=== PATIENT | female | born 1940 | race Caucasian/White ===

== ENCOUNTER 2017-07-10 19:16 | Inpatient (IN) | payer MEDICARE ==
[~2017-07-10] VITALS: Ht 152.4 cm; Wt 35.9 kg
--- NOTE | 2017-07-10 19:21 | PHYS DOC ---
Adult General Chief Complaint Chief Complaint: psych assessment [facility] HPI Patient is a 77 year old female who presents for [facility] psych evaluation. Patient denies any fevers chills nausea vomiting or abdominal pain. She is alert to me her last name is in a figure who she is. She wants to call her states he 's in [place] working currently. She is not sure how she got to [facility] emergency Department. Review of Systems Review of Systems Constitutional: Denies fever or chills [] Eyes: Denies change in visual acuity, redness, or eye pain [] HENT: Denies nasal congestion or sore throat [] Respiratory: Denies cough or shortness of breath [] Cardiovascular: No additional information not addressed in HPI [] GI: Denies abdominal pain, nausea, vomiting, bloody stools or diarrhea [] : Denies dysuria or hematuria [] Musculoskeletal: Denies back pain or joint pain [] Integument: Denies rash or skin lesions [] Neurologic: Denies headache, focal weakness or sensory changes [] Endocrine: Denies polyuria or polydipsia [] Physical Exam Physical Exam Constitutional: Well developed, well nourished, no acute distress, non-toxic appearance. [] HENT: Normocephalic, atraumatic, bilateral external ears normal, oropharynx moist, no oral exudates, nose normal. [] Eyes: PERRLA, EOMI, conjunctiva normal, no discharge. [] Neck: Normal range of motion, no tenderness, supple, no stridor. [] Cardiovascular:Heart rate regular rhythm, no murmur [] Lungs & Thorax: Bilateral breath sounds clear to auscultation [] Abdomen: Bowel sounds normal, soft, no tenderness, no masses, no pulsatile masses. [] Skin: Warm, dry, no erythema, no rash. [] Back: No tenderness, no CVA tenderness. [] Extremities: No tenderness, no cyanosis, no clubbing, ROM intact, no edema. [] Neurologic: Alert and interactive, normal motor function, normal sensory function, no focal deficits noted. [] Psychologic: Scared EKG EKG EKG shows sinus rhythm with rate of [address] elevations or concerning T waves, normal axis, QTC 460 ms, as interpreted by me. Radiology/Procedures Radiology/Procedures [] Impressions: [facility] psych clearance Course & Med Decision Making Course & Med Decision Making Pertinent Labs and Imaging studies reviewed. (See chart for details) I do not appreciate any acute abnormalities going on with the patient and the patient is not cleared for [facility] psych admission. Dragon Disclaimer Dragon Disclaimer This chart was dictated in whole or in part using Voice Recognition software in a busy, high-work load, and often noisy Emergency Department environment. It may contain unintended and wholly unrecognized errors or omissions. Departure Departure: Impression: Primary Impression: Depression Disposition: 02 XFER SHT-TRM HOSP Condition: STABLE Problem Qualifiers Primary Impression: Depression Depression Type: unspecified Qualified Codes: F32.9 - Major depressive disorder, single episode, unspecified YOCASTA ACUNA MD Jul 10, 2017 19:21
[2017-07-10 19:52] LABS: BASO % 0 % (0-3); EOS # 0.4 x10^3/uL (0.0-0.7); EOS % 4 % (0-3); HEMATOCRIT 44.2 % (36.0-47.0); HEMOGLOBIN 15.5 g/dL (12.0-15.5); LYMPH # 1.8 x10^3/uL (1.0-4.8); LYMPH % 21 % (24-48); MEAN CORPUSCULAR HEMOGLOBIN 34 pg (25-35); MEAN CORPUSCULAR HGB CONC 35 g/dL (31-37); MEAN CORPUSCULAR VOLUME 96 fL (79-100); MONO # 0.9 x10^3/uL (0.0-1.1); MONO % 10 % (0-9); NEUT # 5.8 x10^3uL (1.8-7.7); NEUT % 65 % (31-73); PLATELET COUNT 725 x10^3/uL (140-400); RED BLOOD COUNT 4.63 x10^6/uL (3.50-5.40); WHITE BLOOD COUNT 8.9 x10^3/uL (4.0-11.0)
[2017-07-10 20:07] LABS: ALBUMIN 3.6 g/dL (3.4-5.0); ALBUMIN/GLOBULIN RATIO 0.9 (1.0-1.7); CALCIUM 9.3 mg/dL (8.5-10.1); CREATININE 0.6 mg/dL (0.6-1.0); GFR 96.7; MAGNESIUM 1.9 mg/dL (1.8-2.4); POTASSIUM 4.3 mmol/L (3.5-5.1); TOTAL BILIRUBIN 0.2 mg/dL (0.2-1.0); TOTAL PROTEIN 7.8 g/dL (6.4-8.2)
[2017-07-10 20:56] LABS: CLARITY,URINE CLEAR; COLOR,URINE YELLOW; GLUCOSE,URINE NEG (NEG)
[2017-07-10 20:57] LABS: BACTERIA,URINE FEW /HPF (0-FEW); BILIRUBIN,URINE NEG (NEG); NITRITE,URINE NEG (NEG); SQUAMOUS EPITHELIAL CELL,UR MOD /LPF; UROBILINOGEN,URINE 0.2 mg/dL (0.2 mg/dL)
[2017-07-10] MEDS ORDERED: MELA3TAB2 PO (21:58)
[2017-07-10] MEDS ORDERED: POLY17PO5 PO (21:58)
[2017-07-10] MEDS ORDERED: GABA-585 PO (21:58)
[2017-07-10] MEDS ORDERED: ONDA4TAB11 PO (21:58)
[2017-07-10] MEDS ORDERED: TRAM-48 PO (21:58)
[2017-07-10] MEDS ORDERED: MEMA10TA PO (21:58)
[2017-07-10] MEDS ORDERED: TRAZ50TA15 PO (21:58)
[2017-07-10] MEDS ORDERED: DOCU-109 PO (21:58)
[2017-07-10] MEDS ORDERED: ASPI-612 PO (21:58)
[2017-07-10] MEDS ORDERED: AMLO5TAB2 PO (21:58)
[2017-07-10] MEDS ORDERED: MAGN400O7 PO (21:58)
[2017-07-10] MEDS ORDERED: ACET325T9 PO (21:58)
[2017-07-10] MEDS ORDERED: BUSP5TAB PO (21:58)
[2017-07-10] MEDS ORDERED: BISA10SU2 RC (21:58)
[2017-07-10] MEDS ORDERED: GUAI12003 PO (21:58)
--- NOTE | 2017-07-10 22:34 | EKG ---
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
[2017-07-10] MEDS ORDERED: MAG HYDROX/AL HYDROX/SIMETH 30 ML ORAL.SUSP PO PRN (23:15)
[2017-07-10] MEDS ORDERED: METHYL SALICYLATE/MENTHOL TOPICAL OINTMENT 29GM TUBE. TP PRN (23:15)
[2017-07-10] MEDS ORDERED: ACETAMINOPHEN 325 MG TABLET PO PRN (23:15)
[2017-07-10] MEDS ORDERED: MAGNESIUM HYDROXIDE 2,400 MG/30 ML ORAL.SUSP. PO PRN (23:15)
[2017-07-10 23:31] VITALS: BP 143/85
[2017-07-11 06:40] VITALS: BP 154/88
[2017-07-11] MEDS ORDERED: MAGNESIUM HYDROXIDE 2,400 MG/30 ML ORAL.SUSP. PO PRN (07:30)
[2017-07-11] MEDS ORDERED: BISACODYL 10 MG SUPP.RECT RC PRN (07:30)
[2017-07-11] MEDS: ASPIRIN ENTERIC COATED 81 MG TABLET.DR. PO SCH (08:53)
[2017-07-11] MEDS: DOCUSATE SODIUM 100 MG CAPSULE PO SCH (08:53)
[2017-07-11] MEDS: POLYETHYLENE GLYCOL 3350 17 GM PACKET. PO SCH (08:54)
[2017-07-11] MEDS: MEMANTINE 10 MG TABLET. PO SCH ×2 (08:54→20:31)
[2017-07-11] MEDS: traZODone 50 MG TABLET. PO SCH ×3 (08:54→20:31)
[2017-07-11] MEDS: ACETAMINOPHEN 325 MG TABLET PO SCH ×3 (08:54→20:32)
[2017-07-11] MEDS: amLODIPine BESYLATE 5 MG TABLET PO SCH (08:54)
[2017-07-11] MEDS: busPIRone 5 MG TABLET. PO SCH ×2 (08:54→20:31)
[2017-07-11 14:16] LABS: THYROID STIM HORMONE (TSH) 0.783 uIU/mL (0.358-3.740)
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
[2017-07-11 16:27] VITALS: BP 147/89
[2017-07-11 19:12] LABS: T3 TOTAL 96 ng/dL (71-180); THYROXINE 8.6 ug/dL (4.5-12.0)
[2017-07-11 19:39] VITALS: BP 154/94
[2017-07-11] MEDS: GABAPENTIN 100 MG CAPSULE. PO SCH (20:33)
[2017-07-11] MEDS: MELATONIN 3 MG TABLET PO SCH (20:33)
--- NOTE | 2017-07-11 21:09 | PDOC ---
Exam Mu Demential Exam: Mu Note: Please also refer to the separate dictated note~for this date of service dictated separately.~Patient seen individually. Discussed the patient with Nursing staff reviewed the chart.~Reviewed interim history and current functioning. Reviewed vital signs,~Labs/ Radiology~and current medications noted below. Continue current treatment with the changes noted in the dictated addendum note Assessment: Vital Signs: Vital Signs Date Time Temp Pulse Resp B/P (MAP) Pulse Ox O2 Delivery O2 Flow Rate FiO2 07/11/17 19:39 97.9 104 20 154/94 (114) 96 Room Air I&O Intake and Output 07/12/17 07:00 Intake Total 780 ml Balance 780 ml Intake Oral 780 ml Current Medications: Meds: Current Medications Acetaminophen (Tylenol) 650 mg PRN Q6HRS PRN PO PAIN / TEMP; Start 07/10/17 at 23:15 Multi-Ingredient Ointment (Analgesic [place]) 1 madan PRN QID PRN TP MUSCLE PAIN; Start 07/10/17 at 23:15 Al Hydroxide/Mg Hydroxide (Mylanta Plus Xs) 15 ml PRN AFTMEALHC PRN PO DYSPEPSIA; Start 07/10/17 at 23:15 Magnesium Hydroxide (Milk Of Magnesia) 2,400 mg PRN QHS PRN PO CONSTIPATION; Start 07/10/17 at 23:15 Buspirone HCl (Buspar) 5 mg BID PO Last administered on 07/11/17 20:31; Start 07/11/17 at 09:00 Memantine (Namenda) 10 mg BID PO Last administered on 07/11/17 20:31; Start 07/11/17 at 09:00 Trazodone HCl (Desyrel) 25 mg TID PO Last administered on 07/11/17 20:31; Start 07/11/17 at 09:00 Melatonin 3 mg QHS PO Last administered on 07/11/17 20:33; Start 07/11/17 at 21:00 Acetaminophen (Tylenol) 650 mg TID PO Last administered on 07/11/17 20:32; Start 07/11/17 at 09:00 Amlodipine Besylate (Norvasc) 5 mg DAILY PO Last administered on 07/11/17 08: 54; Start 07/11/17 at 09:00 Aspirin (Aspirin Enteric Coated) 81 mg DAILY PO Last administered on 07/11/17 08:53; Start 07/11/17 at 09:00 Bisacodyl (Dulcolax Supp) 10 mg PRN DAILY PRN RC CONSTIPATION; Start 07/11/17 at 07:30 Docusate Sodium (Colace) 100 mg DAILY PO Last administered on 07/11/17 08:53; Start 07/11/17 at 09:00 Gabapentin (Neurontin) 100 mg HS PO Last administered on 07/11/17 20:33; Start 07/11/17 at 21:00 Magnesium Hydroxide (Milk Of Magnesia) 1,200 mg PRN DAILY PRN PO CONSTIPATION; Start 07/11/17 at 07:30 Polyethylene Glycol (miraLAX) 17 gm DAILY PO Last administered on 07/11/17 08: 54; Start 07/11/17 at 09:00 Tramadol HCl (Ultram) 50 mg PRN Q6HRS PRN PO PAIN; Start 07/11/17 at 07:30 Guaifenesin (Mucinex Er) 1,200 mg DAILY PO Last administered on 07/11/17 08:54 ; Start 07/11/17 at 09:00 Active Scripts Active Reported Tylenol (Acetaminophen) 325 Mg Tablet 650 Mg PO TID Trazodone Hcl 50 Mg Tablet 25 Mg PO TID Ultram (Tramadol HCl) 50 Mg Tablet 50 Mg PO PRN Q6HRS PRN Ondansetron Hcl 4 Mg Tablet 4 Mg PO Mucinex (Guaifenesin) 1,200 Mg Tbmp.12hr 1,200 Mg PO DAILY Miralax (Polyethylene Glycol 3350) 17 Gm Powd.pack 17 Gm PO DAILY Milk Of Magnesia (Magnesium Hydroxide) 400 Mg/5 Ml Oral.susp 1,200 Mg PO PRN DAILY PRN Namenda (Memantine Hcl) 10 Mg Tablet 10 Mg PO BID Melatonin 3 Mg Tablet 3 Mg PO QHS Gabapentin 100 Mg Capsule 100 Mg PO HS Colace (Docusate Sodium) 100 Mg Capsule 1 Cap PO DAILY Buspirone Hcl 5 Mg Tablet 5 Mg PO BID Bisacodyl 10 Mg Supp.rect 10 Mg RC PRN DAILY PRN Aspirin Ec (Aspirin) 81 Mg Tablet.dr 81 Mg PO DAILY PRN Amlodipine Besylate 5 Mg Tablet 5 Mg PO DAILY Diagnosis: Problems: (1) Depression KANWAL ZULETA MD Jul 11, 2017 21:09
[2017-07-12 03:21] LABS: HEMOGLOBIN A1C 5.8 % (4.8-5.6)
[2017-07-12 06:09] VITALS: BP 135/80
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
[2017-07-12] MEDS: MEMANTINE 10 MG TABLET. PO SCH ×2 (09:39→20:03)
[2017-07-12] MEDS: traZODone 50 MG TABLET. PO SCH ×3 (09:41→20:03)
[2017-07-12] MEDS: busPIRone 5 MG TABLET. PO SCH ×2 (09:41→20:03)
[2017-07-12] MEDS: POLYETHYLENE GLYCOL 3350 17 GM PACKET. PO SCH (09:42)
[2017-07-12] MEDS: DOCUSATE SODIUM 100 MG CAPSULE PO SCH (09:42)
[2017-07-12] MEDS: ACETAMINOPHEN 325 MG TABLET PO SCH ×3 (09:42→20:03)
[2017-07-12] MEDS: amLODIPine BESYLATE 5 MG TABLET PO SCH (09:42)
[2017-07-12] MEDS: ASPIRIN ENTERIC COATED 81 MG TABLET.DR. PO SCH (09:42)
[2017-07-12 15:53] VITALS: BP 110/75
[2017-07-12] MEDS: MELATONIN 3 MG TABLET PO SCH (20:02)
[2017-07-12] MEDS: GABAPENTIN 100 MG CAPSULE. PO SCH (20:03)
--- NOTE | 2017-07-12 21:16 | PDOC ---
Exam Mu Demential Exam: Mu Note: Please also refer to the separate dictated note~for this date of service dictated separately.~Patient seen individually. Discussed the patient with Nursing staff reviewed the chart.~Reviewed interim history and current functioning. Reviewed vital signs,~Labs/ Radiology~and current medications noted below. Continue current treatment with the changes noted in the dictated addendum note Assessment: Vital Signs: Vital Signs Date Time Temp Pulse Resp B/P (MAP) Pulse Ox O2 Delivery O2 Flow Rate FiO2 07/12/17 15:53 98.8 79 16 110/75 (87) 97 07/11/17 19:39 Room Air I&O Intake and Output 07/13/17 07:00 Intake Total 480 ml Balance 480 ml Intake Oral 480 ml Current Medications: Meds: Current Medications Acetaminophen (Tylenol) 650 mg PRN Q6HRS PRN PO PAIN / TEMP; Start 07/10/17 at 23:15 Multi-Ingredient Ointment (Analgesic [place]) 1 madan PRN QID PRN TP MUSCLE PAIN; Start 07/10/17 at 23:15 Al Hydroxide/Mg Hydroxide (Mylanta Plus Xs) 15 ml PRN AFTMEALHC PRN PO DYSPEPSIA; Start 07/10/17 at 23:15 Magnesium Hydroxide (Milk Of Magnesia) 2,400 mg PRN QHS PRN PO CONSTIPATION; Start 07/10/17 at 23:15 Buspirone HCl (Buspar) 5 mg BID PO Last administered on 07/12/17 20:03; Start 07/11/17 at 09:00 Memantine (Namenda) 10 mg BID PO Last administered on 07/12/17 20:03; Start 07/11/17 at 09:00 Trazodone HCl (Desyrel) 25 mg TID PO Last administered on 07/12/17 20:03; Start 07/11/17 at 09:00 Melatonin 3 mg QHS PO Last administered on 07/12/17 20:02; Start 07/11/17 at 21:00 Acetaminophen (Tylenol) 650 mg TID PO Last administered on 07/12/17 20:03; Start 07/11/17 at 09:00 Amlodipine Besylate (Norvasc) 5 mg DAILY PO Last administered on 07/12/17 09: 42; Start 07/11/17 at 09:00 Aspirin (Aspirin Enteric Coated) 81 mg DAILY PO Last administered on 07/12/17 09:42; Start 07/11/17 at 09:00 Bisacodyl (Dulcolax Supp) 10 mg PRN DAILY PRN RC CONSTIPATION; Start 07/11/17 at 07:30 Docusate Sodium (Colace) 100 mg DAILY PO Last administered on 07/12/17 09:42; Start 07/11/17 at 09:00 Gabapentin (Neurontin) 100 mg HS PO Last administered on 07/12/17 20:03; Start 07/11/17 at 21:00 Magnesium Hydroxide (Milk Of Magnesia) 1,200 mg PRN DAILY PRN PO CONSTIPATION; Start 07/11/17 at 07:30 Polyethylene Glycol (miraLAX) 17 gm DAILY PO Last administered on 07/12/17 09: 42; Start 07/11/17 at 09:00 Tramadol HCl (Ultram) 50 mg PRN Q6HRS PRN PO PAIN; Start 07/11/17 at 07:30 Guaifenesin (Mucinex Er) 1,200 mg DAILY PO Last administered on 07/12/17 09:40 ; Start 07/11/17 at 09:00 Sertraline HCl (Zoloft) 25 mg DAILY PO ; Start 07/13/17 at 09:00; Stop 07/15/17 at 09:00 Sertraline HCl (Zoloft) 50 mg DAILY PO ; Start 07/15/17 at 09:00 Active Scripts Active Reported Tylenol (Acetaminophen) 325 Mg Tablet 650 Mg PO TID Trazodone Hcl 50 Mg Tablet 25 Mg PO TID Ultram (Tramadol HCl) 50 Mg Tablet 50 Mg PO PRN Q6HRS PRN Ondansetron Hcl 4 Mg Tablet 4 Mg PO Mucinex (Guaifenesin) 1,200 Mg Tbmp.12hr 1,200 Mg PO DAILY Miralax (Polyethylene Glycol 3350) 17 Gm Powd.pack 17 Gm PO DAILY Milk Of Magnesia (Magnesium Hydroxide) 400 Mg/5 Ml Oral.susp 1,200 Mg PO PRN DAILY PRN Namenda (Memantine Hcl) 10 Mg Tablet 10 Mg PO BID Melatonin 3 Mg Tablet 3 Mg PO QHS Gabapentin 100 Mg Capsule 100 Mg PO HS Colace (Docusate Sodium) 100 Mg Capsule 1 Cap PO DAILY Buspirone Hcl 5 Mg Tablet 5 Mg PO BID Bisacodyl 10 Mg Supp.rect 10 Mg RC PRN DAILY PRN Aspirin Ec (Aspirin) 81 Mg Tablet.dr 81 Mg PO DAILY PRN Amlodipine Besylate 5 Mg Tablet 5 Mg PO DAILY Diagnosis: Problems: (1) Depression (2) Anxiety disorder (3) Dementia in Alzheimer's disease with depression (4) Dementia in Alzheimer's disease with delusions (5) Dementia, vascular, with depression (6) Dementia, vascular, with delusions (7) Impulse control disorder KANWAL ZULETA MD Jul 12, 2017 21:15
[2017-07-13 06:08] VITALS: BP 124/76
[2017-07-13] MEDS: POLYETHYLENE GLYCOL 3350 17 GM PACKET. PO SCH (08:54)
[2017-07-13] MEDS: ACETAMINOPHEN 325 MG TABLET PO SCH ×3 (08:54→19:17)
[2017-07-13] MEDS: DOCUSATE SODIUM 100 MG CAPSULE PO SCH (08:54)
[2017-07-13] MEDS: amLODIPine BESYLATE 5 MG TABLET PO SCH (08:55)
[2017-07-13] MEDS: MEMANTINE 10 MG TABLET. PO SCH ×2 (08:55→19:16)
[2017-07-13] MEDS: busPIRone 5 MG TABLET. PO SCH ×2 (08:55→19:15)
[2017-07-13] MEDS: ASPIRIN ENTERIC COATED 81 MG TABLET.DR. PO SCH (08:56)
[2017-07-13] MEDS: traZODone 50 MG TABLET. PO SCH ×3 (08:56→19:16)
[2017-07-13] MEDS: SERTRALINE 25 MG TABLET. PO SCH (08:58)
[2017-07-13 16:16] VITALS: BP 158/82
--- NOTE | 2017-07-13 17:37 | PN ---
DATE: 07/12/2017 PSYCHIATRIC PROGRESS NOTE This is a late entry 07/12/2017, covers elements not covered in my initial note of 07/12/2017. SUBJECTIVE: The patient was seen individually evening of 07/12/2017. She slept 8 hours previous evening, yelling for help, constantly asking for her , Elia, redirects at times. She fell the previous evening, no injuries noted, slide out of her wheelchair. Things she can walk, but she cannot, status post CVA in 03/2017. REVIEW OF SYSTEMS: Ambulation impaired, in wheelchair. No CV, , pulmonary, eye, ENT system symptoms on review. MENTAL STATUS EXAM: Oriented to herself. Insight, judgment, recent and remote memory, attention, concentration, fund of knowledge poor, consistent with her diagnoses mentioned in my initial note. PLAN: Start Zoloft 25 mg a day, increase in 2 days to 50 mg a day. Maintain the rest of the psychotropics. Adjust further as clinically indicated. KANWAL ZULETA MD DR: SCOTT/giuseppe JOB#: [id number] / [id number]
[2017-07-13] MEDS: GABAPENTIN 100 MG CAPSULE. PO SCH (19:16)
[2017-07-13] MEDS: MELATONIN 3 MG TABLET PO SCH (19:16)
--- NOTE | 2017-07-13 22:59 | PDOC ---
Exam Mu Demential Exam: Mu Note: Please also refer to the separate dictated note~for this date of service dictated separately.~Patient seen individually. Discussed the patient with Nursing staff reviewed the chart.~Reviewed interim history and current functioning. Reviewed vital signs,~Labs/ Radiology~and current medications noted below. Continue current treatment with the changes noted in the dictated addendum note Assessment: Vital Signs: Vital Signs Date Time Temp Pulse Resp B/P (MAP) Pulse Ox O2 Delivery O2 Flow Rate FiO2 07/13/17 16:16 97.0 90 20 158/82 (107) 95 07/11/17 19:39 Room Air I&O Intake and Output 07/14/17 07:00 Intake Total 1320 ml Output Total 1 ml Balance 1319 ml Intake Oral 1320 ml Output Urine Total 1 ml # Bowel Movements 1 Current Medications: Meds: Current Medications Acetaminophen (Tylenol) 650 mg PRN Q6HRS PRN PO PAIN / TEMP; Start 07/10/17 at 23:15 Multi-Ingredient Ointment (Analgesic [place]) 1 madan PRN QID PRN TP MUSCLE PAIN; Start 07/10/17 at 23:15 Al Hydroxide/Mg Hydroxide (Mylanta Plus Xs) 15 ml PRN AFTMEALHC PRN PO DYSPEPSIA; Start 07/10/17 at 23:15 Magnesium Hydroxide (Milk Of Magnesia) 2,400 mg PRN QHS PRN PO CONSTIPATION; Start 07/10/17 at 23:15 Buspirone HCl (Buspar) 5 mg BID PO Last administered on 07/13/17 19:15; Start 07/11/17 at 09:00 Memantine (Namenda) 10 mg BID PO Last administered on 07/13/17 19:16; Start 07/11/17 at 09:00 Trazodone HCl (Desyrel) 25 mg TID PO Last administered on 07/13/17 19:16; Start 07/11/17 at 09:00 Melatonin 3 mg QHS PO Last administered on 07/13/17 19:16; Start 07/11/17 at 21:00 Acetaminophen (Tylenol) 650 mg TID PO Last administered on 07/13/17 19:17; Start 07/11/17 at 09:00 Amlodipine Besylate (Norvasc) 5 mg DAILY PO Last administered on 07/13/17 08: 55; Start 07/11/17 at 09:00 Aspirin (Aspirin Enteric Coated) 81 mg DAILY PO Last administered on 07/13/17 08:56; Start 07/11/17 at 09:00 Bisacodyl (Dulcolax Supp) 10 mg PRN DAILY PRN RC CONSTIPATION; Start 07/11/17 at 07:30 Docusate Sodium (Colace) 100 mg DAILY PO Last administered on 07/13/17 08:54; Start 07/11/17 at 09:00 Gabapentin (Neurontin) 100 mg HS PO Last administered on 07/13/17 19:16; Start 07/11/17 at 21:00 Magnesium Hydroxide (Milk Of Magnesia) 1,200 mg PRN DAILY PRN PO CONSTIPATION; Start 07/11/17 at 07:30 Polyethylene Glycol (miraLAX) 17 gm DAILY PO Last administered on 07/13/17 08: 54; Start 07/11/17 at 09:00 Tramadol HCl (Ultram) 50 mg PRN Q6HRS PRN PO PAIN; Start 07/11/17 at 07:30 Guaifenesin (Mucinex Er) 1,200 mg DAILY PO Last administered on 07/13/17 08:54 ; Start 07/11/17 at 09:00 Sertraline HCl (Zoloft) 25 mg DAILY PO Last administered on 07/13/17 08:58; Start 07/13/17 at 09:00; Stop 07/15/17 at 09:00 Sertraline HCl (Zoloft) 50 mg DAILY PO ; Start 07/15/17 at 09:00 Active Scripts Active Reported Tylenol (Acetaminophen) 325 Mg Tablet 650 Mg PO TID Trazodone Hcl 50 Mg Tablet 25 Mg PO TID Ultram (Tramadol HCl) 50 Mg Tablet 50 Mg PO PRN Q6HRS PRN Ondansetron Hcl 4 Mg Tablet 4 Mg PO Mucinex (Guaifenesin) 1,200 Mg Tbmp.12hr 1,200 Mg PO DAILY Miralax (Polyethylene Glycol 3350) 17 Gm Powd.pack 17 Gm PO DAILY Milk Of Magnesia (Magnesium Hydroxide) 400 Mg/5 Ml Oral.susp 2,400 Mg PO PRN DAILY PRN Namenda (Memantine Hcl) 10 Mg Tablet 10 Mg PO BID Melatonin 3 Mg Tablet 3 Mg PO QHS Gabapentin 100 Mg Capsule 100 Mg PO HS Colace (Docusate Sodium) 100 Mg Capsule 100 Mg PO DAILY Buspirone Hcl 5 Mg Tablet 5 Mg PO BID Bisacodyl 10 Mg Supp.rect 10 Mg RC PRN DAILY PRN Aspirin Ec (Aspirin) 81 Mg Tablet.dr 81 Mg PO DAILY PRN Amlodipine Besylate 5 Mg Tablet 5 Mg PO DAILY Diagnosis: Problems: (1) Depression (2) Anxiety disorder (3) Dementia in Alzheimer's disease with depression (4) Dementia in Alzheimer's disease with delusions (5) Dementia, vascular, with depression (6) Dementia, vascular, with delusions (7) Impulse control disorder KANWAL ZULETA MD Jul 13, 2017 22:59
[2017-07-14 05:57] VITALS: BP 156/75
[2017-07-14] MEDS: DOCUSATE SODIUM 100 MG CAPSULE PO SCH (08:38)
[2017-07-14] MEDS: POLYETHYLENE GLYCOL 3350 17 GM PACKET. PO SCH (08:38)
[2017-07-14] MEDS: busPIRone 5 MG TABLET. PO SCH ×2 (08:38→19:41)
[2017-07-14] MEDS: ASPIRIN ENTERIC COATED 81 MG TABLET.DR. PO SCH (08:38)
[2017-07-14] MEDS: SERTRALINE 25 MG TABLET. PO SCH (08:39)
[2017-07-14] MEDS: traZODone 50 MG TABLET. PO SCH ×3 (08:39→19:41)
[2017-07-14] MEDS: ACETAMINOPHEN 325 MG TABLET PO SCH ×3 (08:40→19:41)
[2017-07-14] MEDS: amLODIPine BESYLATE 5 MG TABLET PO SCH (08:41)
[2017-07-14] MEDS: MEMANTINE 10 MG TABLET. PO SCH ×2 (08:41→19:41)
[2017-07-14 15:51] VITALS: BP 152/82
[2017-07-14] MEDS: GABAPENTIN 100 MG CAPSULE. PO SCH (19:40)
[2017-07-14] MEDS: MELATONIN 3 MG TABLET PO SCH (19:41)
--- NOTE | 2017-07-14 20:43 | PDOC ---
Exam Mu Demential Exam: Mu Note: Please also refer to the separate dictated note~for this date of service dictated separately.~Patient seen individually. Discussed the patient with Nursing staff reviewed the chart.~Reviewed interim history and current functioning. Reviewed vital signs,~Labs/ Radiology~and current medications noted below. Continue current treatment with the changes noted in the dictated addendum note Assessment: Vital Signs: Vital Signs Date Time Temp Pulse Resp B/P (MAP) Pulse Ox O2 Delivery O2 Flow Rate FiO2 07/14/17 15:51 98.1 86 18 152/82 (105) 96 07/11/17 19:39 Room Air I&O Intake and Output 07/15/17 07:00 Intake Total 1560 ml Balance 1560 ml Intake Oral 1560 ml Current Medications: Meds: Current Medications Acetaminophen (Tylenol) 650 mg PRN Q6HRS PRN PO PAIN / TEMP; Start 07/10/17 at 23:15 Multi-Ingredient Ointment (Analgesic [place]) 1 madan PRN QID PRN TP MUSCLE PAIN; Start 07/10/17 at 23:15 Al Hydroxide/Mg Hydroxide (Mylanta Plus Xs) 15 ml PRN AFTMEALHC PRN PO DYSPEPSIA; Start 07/10/17 at 23:15 Magnesium Hydroxide (Milk Of Magnesia) 2,400 mg PRN QHS PRN PO CONSTIPATION; Start 07/10/17 at 23:15 Buspirone HCl (Buspar) 5 mg BID PO Last administered on 07/14/17 19:41; Start 07/11/17 at 09:00 Memantine (Namenda) 10 mg BID PO Last administered on 07/14/17 19:41; Start 07/11/17 at 09:00 Trazodone HCl (Desyrel) 25 mg TID PO Last administered on 07/14/17 19:41; Start 07/11/17 at 09:00 Melatonin 3 mg QHS PO Last administered on 07/14/17 19:41; Start 07/11/17 at 21:00 Acetaminophen (Tylenol) 650 mg TID PO Last administered on 07/14/17 19:41; Start 07/11/17 at 09:00 Amlodipine Besylate (Norvasc) 5 mg DAILY PO Last administered on 07/14/17 08: 41; Start 07/11/17 at 09:00 Aspirin (Aspirin Enteric Coated) 81 mg DAILY PO Last administered on 07/14/17 08:38; Start 07/11/17 at 09:00 Bisacodyl (Dulcolax Supp) 10 mg PRN DAILY PRN RC CONSTIPATION; Start 07/11/17 at 07:30 Docusate Sodium (Colace) 100 mg DAILY PO Last administered on 07/14/17 08:38; Start 07/11/17 at 09:00 Gabapentin (Neurontin) 100 mg HS PO Last administered on 07/14/17 19:40; Start 07/11/17 at 21:00 Magnesium Hydroxide (Milk Of Magnesia) 1,200 mg PRN DAILY PRN PO CONSTIPATION; Start 07/11/17 at 07:30 Polyethylene Glycol (miraLAX) 17 gm DAILY PO Last administered on 07/14/17 08: 38; Start 07/11/17 at 09:00 Tramadol HCl (Ultram) 50 mg PRN Q6HRS PRN PO PAIN; Start 07/11/17 at 07:30 Guaifenesin (Mucinex Er) 1,200 mg DAILY PO Last administered on 07/14/17 08:39 ; Start 07/11/17 at 09:00 Sertraline HCl (Zoloft) 25 mg DAILY PO Last administered on 07/14/17 08:39; Start 07/13/17 at 09:00; Stop 07/15/17 at 09:00 Sertraline HCl (Zoloft) 50 mg DAILY PO ; Start 07/15/17 at 09:00 Active Scripts Active Reported Tylenol (Acetaminophen) 325 Mg Tablet 650 Mg PO TID Trazodone Hcl 50 Mg Tablet 25 Mg PO TID Ultram (Tramadol HCl) 50 Mg Tablet 50 Mg PO PRN Q6HRS PRN Ondansetron Hcl 4 Mg Tablet 4 Mg PO Mucinex (Guaifenesin) 1,200 Mg Tbmp.12hr 1,200 Mg PO DAILY Miralax (Polyethylene Glycol 3350) 17 Gm Powd.pack 17 Gm PO DAILY Milk Of Magnesia (Magnesium Hydroxide) 400 Mg/5 Ml Oral.susp 2,400 Mg PO PRN DAILY PRN Namenda (Memantine Hcl) 10 Mg Tablet 10 Mg PO BID Melatonin 3 Mg Tablet 3 Mg PO QHS Gabapentin 100 Mg Capsule 100 Mg PO HS Colace (Docusate Sodium) 100 Mg Capsule 100 Mg PO DAILY Buspirone Hcl 5 Mg Tablet 5 Mg PO BID Bisacodyl 10 Mg Supp.rect 10 Mg RC PRN DAILY PRN Aspirin Ec (Aspirin) 81 Mg Tablet.dr 81 Mg PO DAILY PRN Amlodipine Besylate 5 Mg Tablet 5 Mg PO DAILY Diagnosis: Problems: (1) Depression (2) Anxiety disorder (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
--- NOTE | 2017-07-14 22:37 | PN ---
DATE: 07/13/2017 PSYCHIATRIC PROGRESS NOTE This is a late entry for 07/13/2017, covers elements not covered in my initial note of 07/13/2017. SUBJECTIVE: I met with the patient the evening of 07/13/2017. Overall, the patient has been pleasantly confused, has no memory or recall, calling out for her , somewhat paranoid, has been taking medications. REVIEW OF SYSTEMS: Ambulation impaired, in a wheelchair. No CV, , pulmonary, eye, ENT system symptoms on review. MENTAL STATUS EXAM: Oriented to herself. Insight, judgment, recent and remote memory, attention, concentration, fund of knowledge poor, consistent with her diagnosis mentioned in my initial note. PLAN: Continue current psychotropics, Zoloft has been increased to 50 mg a day. Maintain BuSpar, melatonin, Namenda, and trazodone, which is scheduled. As her mood stabilizes, we may reduce the trazodone 25 mg t.i.d. Reviewed drug interactions. Risk/benefit ratio favors no further change. MAN Dariel ZULETA MD DR: SCOTT/giuseppe JOB#: [id number] / [id number]
[2017-07-14] MEDS: traMADol 50 MG TABLET PO PRN (22:48)
[2017-07-15 06:26] VITALS: BP 154/84
[2017-07-15] MEDS: busPIRone 5 MG TABLET. PO SCH ×2 (08:34→19:23)
[2017-07-15] MEDS: amLODIPine BESYLATE 5 MG TABLET PO SCH (08:34)
[2017-07-15] MEDS: DOCUSATE SODIUM 100 MG CAPSULE PO SCH (08:34)
[2017-07-15] MEDS: POLYETHYLENE GLYCOL 3350 17 GM PACKET. PO SCH (08:34)
[2017-07-15] MEDS: ACETAMINOPHEN 325 MG TABLET PO SCH ×3 (08:34→19:24)
[2017-07-15] MEDS: ASPIRIN ENTERIC COATED 81 MG TABLET.DR. PO SCH (08:34)
[2017-07-15] MEDS: traZODone 50 MG TABLET. PO SCH ×3 (08:35→19:23)
[2017-07-15] MEDS: SERTRALINE 25 MG TABLET. PO SCH ×3 (08:35→08:39)
[2017-07-15] MEDS: SERTRALINE 50 MG TABLET. PO SCH (08:38)
[2017-07-15] MEDS: MEMANTINE 10 MG TABLET. PO SCH ×2 (08:39→19:23)
[2017-07-15 16:12] VITALS: BP 138/86
[2017-07-15] MEDS: MELATONIN 3 MG TABLET PO SCH (19:23)
[2017-07-15] MEDS: GABAPENTIN 100 MG CAPSULE. PO SCH (19:24)
--- NOTE | 2017-07-15 20:30 | PDOC ---
Exam Mu Demential Exam: Mu Note: Please also refer to the separate dictated note~for this date of service dictated separately.~Patient seen individually. Discussed the patient with Nursing staff reviewed the chart.~Reviewed interim history and current functioning. Reviewed vital signs,~Labs/ Radiology~and current medications noted below. Continue current treatment with the changes noted in the dictated addendum note Assessment: Vital Signs: Vital Signs Date Time Temp Pulse Resp B/P (MAP) Pulse Ox O2 Delivery O2 Flow Rate FiO2 07/15/17 16:12 97.8 86 18 138/86 (103) 95 Room Air I&O Intake and Output 07/16/17 07:00 Intake Total 1320 ml Balance 1320 ml Intake Oral 1320 ml # Bowel Movements 2 Current Medications: Meds: Current Medications Acetaminophen (Tylenol) 650 mg PRN Q6HRS PRN PO PAIN / TEMP; Start 07/10/17 at 23:15 Multi-Ingredient Ointment (Analgesic [place]) 1 madan PRN QID PRN TP MUSCLE PAIN; Start 07/10/17 at 23:15 Al Hydroxide/Mg Hydroxide (Mylanta Plus Xs) 15 ml PRN AFTMEALHC PRN PO DYSPEPSIA; Start 07/10/17 at 23:15 Magnesium Hydroxide (Milk Of Magnesia) 2,400 mg PRN QHS PRN PO CONSTIPATION; Start 07/10/17 at 23:15 Buspirone HCl (Buspar) 5 mg BID PO Last administered on 07/15/17 19:23; Start 07/11/17 at 09:00 Memantine (Namenda) 10 mg BID PO Last administered on 07/15/17 19:23; Start 07/11/17 at 09:00 Trazodone HCl (Desyrel) 25 mg TID PO Last administered on 07/15/17 19:23; Start 07/11/17 at 09:00 Melatonin 3 mg QHS PO Last administered on 07/15/17 19:23; Start 07/11/17 at 21:00 Acetaminophen (Tylenol) 650 mg TID PO Last administered on 07/15/17 19:24; Start 07/11/17 at 09:00 Amlodipine Besylate (Norvasc) 5 mg DAILY PO Last administered on 07/15/17 08: 34; Start 07/11/17 at 09:00 Aspirin (Aspirin Enteric Coated) 81 mg DAILY PO Last administered on 07/15/17 08:34; Start 07/11/17 at 09:00 Bisacodyl (Dulcolax Supp) 10 mg PRN DAILY PRN RC CONSTIPATION; Start 07/11/17 at 07:30 Docusate Sodium (Colace) 100 mg DAILY PO Last administered on 07/15/17 08:34; Start 07/11/17 at 09:00 Gabapentin (Neurontin) 100 mg HS PO Last administered on 07/15/17 19:24; Start 07/11/17 at 21:00 Magnesium Hydroxide (Milk Of Magnesia) 1,200 mg PRN DAILY PRN PO CONSTIPATION; Start 07/11/17 at 07:30 Polyethylene Glycol (miraLAX) 17 gm DAILY PO Last administered on 07/15/17 08: 34; Start 07/11/17 at 09:00 Tramadol HCl (Ultram) 50 mg PRN Q6HRS PRN PO PAIN Last administered on 22:48; Start 07/11/17 at 07:30 Guaifenesin (Mucinex Er) 1,200 mg DAILY PO Last administered on 07/15/17 08:34 ; Start 07/11/17 at 09:00 Sertraline HCl (Zoloft) 25 mg DAILY PO Last administered on 07/14/17 08:39; Start 07/13/17 at 09:00; Stop 07/15/17 at 09:00; Status DC Sertraline HCl (Zoloft) 50 mg DAILY PO Last administered on 07/15/17 08:38; Start 07/15/17 at 09:00 Active Scripts Active Reported Tylenol (Acetaminophen) 325 Mg Tablet 650 Mg PO TID Trazodone Hcl 50 Mg Tablet 25 Mg PO TID Ultram (Tramadol HCl) 50 Mg Tablet 50 Mg PO PRN Q6HRS PRN Ondansetron Hcl 4 Mg Tablet 4 Mg PO Mucinex (Guaifenesin) 1,200 Mg Tbmp.12hr 1,200 Mg PO DAILY Miralax (Polyethylene Glycol 3350) 17 Gm Powd.pack 17 Gm PO DAILY Milk Of Magnesia (Magnesium Hydroxide) 400 Mg/5 Ml Oral.susp 2,400 Mg PO PRN DAILY PRN Namenda (Memantine Hcl) 10 Mg Tablet 10 Mg PO BID Melatonin 3 Mg Tablet 3 Mg PO QHS Gabapentin 100 Mg Capsule 100 Mg PO HS Colace (Docusate Sodium) 100 Mg Capsule 100 Mg PO DAILY Buspirone Hcl 5 Mg Tablet 5 Mg PO BID Bisacodyl 10 Mg Supp.rect 10 Mg RC PRN DAILY PRN Aspirin Ec (Aspirin) 81 Mg Tablet.dr 81 Mg PO DAILY PRN Amlodipine Besylate 5 Mg Tablet 5 Mg PO DAILY Diagnosis: Problems: (1) Anxiety disorder (2) 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
--- NOTE | 2017-07-15 23:29 | PN ---
DATE: 07/14/2017 PSYCHIATRIC PROGRESS NOTE This late entry 07/14/2017 covers elements, not covered in my initial note of 07/14/2017. SUBJECTIVE: I met with the patient evening of 07/14/2017, discussed with nursing staff. Per nursing report, the patient remains pleasantly confused with significant short term memory deficits, calling out for , somewhat suspicious, yelling out at times for ____ her . REVIEW OF SYSTEMS: Ambulation impaired, in a wheelchair. No CV, , pulmonary, eye, ENT system symptoms on review. Reliability poor. MENTAL STATUS EXAM: Oriented to herself. Insight, judgment, recent and remote memory, attention, concentration, fund of knowledge poor, consistent with her diagnosis mentioned in my initial note. PLAN: Continue current psychotropics mentioned in my initial note. Reviewed drug interactions. Risk/benefit ratio favors no further change. MAN Dariel ZULETA MD DR: SCOTT/giuseppe JOB#: [id number] / [id number]
[2017-07-16 07:12] VITALS: BP 134/87
[2017-07-16] MEDS: amLODIPine BESYLATE 5 MG TABLET PO SCH (08:07)
[2017-07-16] MEDS: DOCUSATE SODIUM 100 MG CAPSULE PO SCH (08:07)
[2017-07-16] MEDS: busPIRone 5 MG TABLET. PO SCH ×2 (08:07→19:17)
[2017-07-16] MEDS: MEMANTINE 10 MG TABLET. PO SCH ×2 (08:07→19:16)
[2017-07-16] MEDS: ASPIRIN ENTERIC COATED 81 MG TABLET.DR. PO SCH (08:07)
[2017-07-16] MEDS: POLYETHYLENE GLYCOL 3350 17 GM PACKET. PO SCH (08:08)
[2017-07-16] MEDS: SERTRALINE 50 MG TABLET. PO SCH (08:08)
[2017-07-16] MEDS: ACETAMINOPHEN 325 MG TABLET PO SCH ×3 (08:08→19:17)
[2017-07-16] MEDS: traZODone 50 MG TABLET. PO SCH ×3 (08:09→19:16)
[2017-07-16 16:02] VITALS: BP 129/78
[2017-07-16] MEDS: GABAPENTIN 100 MG CAPSULE. PO SCH (19:16)
[2017-07-16] MEDS: MELATONIN 3 MG TABLET PO SCH (19:17)
--- NOTE | 2017-07-16 20:49 | PDOC ---
Exam Mu Demential Exam: Mu Note: Please also refer to the separate dictated note~for this date of service dictated separately.~Patient seen individually. Discussed the patient with Nursing staff reviewed the chart.~Reviewed interim history and current functioning. Reviewed vital signs,~Labs/ Radiology~and current medications noted below. Continue current treatment with the changes noted in the dictated addendum note Assessment: Vital Signs: Vital Signs Date Time Temp Pulse Resp B/P (MAP) Pulse Ox O2 Delivery O2 Flow Rate FiO2 07/16/17 16:02 97.8 75 20 129/78 (95) 94 07/15/17 16:12 Room Air I&O Intake and Output 07/17/17 07:00 Intake Total 840 ml Balance 840 ml Intake Oral 840 ml # Bowel Movements 1 Current Medications: Meds: Current Medications Acetaminophen (Tylenol) 650 mg PRN Q6HRS PRN PO PAIN / TEMP; Start 07/10/17 at 23:15 Multi-Ingredient Ointment (Analgesic [place]) 1 madan PRN QID PRN TP MUSCLE PAIN; Start 07/10/17 at 23:15 Al Hydroxide/Mg Hydroxide (Mylanta Plus Xs) 15 ml PRN AFTMEALHC PRN PO DYSPEPSIA; Start 07/10/17 at 23:15 Magnesium Hydroxide (Milk Of Magnesia) 2,400 mg PRN QHS PRN PO CONSTIPATION; Start 07/10/17 at 23:15 Buspirone HCl (Buspar) 5 mg BID PO Last administered on 07/16/17 19:17; Start 07/11/17 at 09:00 Memantine (Namenda) 10 mg BID PO Last administered on 07/16/17 19:16; Start 07/11/17 at 09:00 Trazodone HCl (Desyrel) 25 mg TID PO Last administered on 07/16/17 19:16; Start 07/11/17 at 09:00 Melatonin 3 mg QHS PO Last administered on 07/16/17 19:17; Start 07/11/17 at 21:00 Acetaminophen (Tylenol) 650 mg TID PO Last administered on 07/16/17 19:17; Start 07/11/17 at 09:00 Amlodipine Besylate (Norvasc) 5 mg DAILY PO Last administered on 07/16/17 08: 07; Start 07/11/17 at 09:00 Aspirin (Aspirin Enteric Coated) 81 mg DAILY PO Last administered on 08:07; Start 07/11/17 at 09:00 Bisacodyl (Dulcolax Supp) 10 mg PRN DAILY PRN RC CONSTIPATION; Start 07/11/17 at 07:30 Docusate Sodium (Colace) 100 mg DAILY PO Last administered on 07/16/17 08:07 ; Start 07/11/17 at 09:00 Gabapentin (Neurontin) 100 mg HS PO Last administered on 07/16/17 19:16; Start 07/11/17 at 21:00 Magnesium Hydroxide (Milk Of Magnesia) 1,200 mg PRN DAILY PRN PO CONSTIPATION; Start 07/11/17 at 07:30 Polyethylene Glycol (miraLAX) 17 gm DAILY PO Last administered on 07/16/17 08 :08; Start 07/11/17 at 09:00 Tramadol HCl (Ultram) 50 mg PRN Q6HRS PRN PO PAIN Last administered on 22:48; Start 07/11/17 at 07:30 Guaifenesin (Mucinex Er) 1,200 mg DAILY PO Last administered on 07/16/17 08: 09; Start 07/11/17 at 09:00 Sertraline HCl (Zoloft) 25 mg DAILY PO Last administered on 07/14/17 08:39; Start 07/13/17 at 09:00; Stop 07/15/17 at 09:00; Status DC Sertraline HCl (Zoloft) 50 mg DAILY PO Last administered on 07/16/17 08:08; Start 07/15/17 at 09:00 Active Scripts Active Reported Tylenol (Acetaminophen) 325 Mg Tablet 650 Mg PO TID Trazodone Hcl 50 Mg Tablet 25 Mg PO TID Ultram (Tramadol HCl) 50 Mg Tablet 50 Mg PO PRN Q6HRS PRN Ondansetron Hcl 4 Mg Tablet 4 Mg PO Mucinex (Guaifenesin) 1,200 Mg Tbmp.12hr 1,200 Mg PO DAILY Miralax (Polyethylene Glycol 3350) 17 Gm Powd.pack 17 Gm PO DAILY Milk Of Magnesia (Magnesium Hydroxide) 400 Mg/5 Ml Oral.susp 2,400 Mg PO PRN DAILY PRN Namenda (Memantine Hcl) 10 Mg Tablet 10 Mg PO BID Melatonin 3 Mg Tablet 3 Mg PO QHS Gabapentin 100 Mg Capsule 100 Mg PO HS Colace (Docusate Sodium) 100 Mg Capsule 100 Mg PO DAILY Buspirone Hcl 5 Mg Tablet 5 Mg PO BID Bisacodyl 10 Mg Supp.rect 10 Mg RC PRN DAILY PRN Aspirin Ec (Aspirin) 81 Mg Tablet.dr 81 Mg PO DAILY PRN Amlodipine Besylate 5 Mg Tablet 5 Mg PO DAILY Diagnosis: Problems: (1) Depression (2) Anxiety disorder (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
--- NOTE | 2017-07-17 03:00 | PN ---
DATE: 07/15/2017 PSYCHIATRIC PROGRESS NOTE This late entry 07/15/2017, covers elements not covered in my initial note of 07/15/2017. I met with the patient in the afternoon of 07/15/2017. The patient slept 8-1/2 hours the previous evening, spending more time out in the day room suspicious looking for her , Elia. Still gets tearful, labile at times. REVIEW OF SYSTEMS: Ambulation impaired, in a wheelchair. No CV, , pulmonary, eye, ENT system symptoms on review. Reliability poor. MENTAL STATUS EXAM: Oriented to herself. Insight, judgment, recent and remote memory, attention, concentration, fund of knowledge poor, consistent with her diagnosis mentioned in my initial note. PLAN: Continue current psychotropics mentioned in my initial note. Zoloft was increased to 50 mg a day. She is on BuSpar b.i.d., melatonin, Namenda, scheduled trazodone at 25 mg 3 times a day, this could be sedating her and we will reduce it to 12.5 mg 3 times a day and consider increasing BuSpar if anxiety symptoms resurface. Reviewed drug interactions, risk/benefit ratio favors no further change. KANWAL ZULETA MD DR: SCOTT/giuseppe JOB#: [id number] / [id number]
[2017-07-17 05:48] VITALS: BP 151/86
[2017-07-17] MEDS: ASPIRIN ENTERIC COATED 81 MG TABLET.DR. PO SCH (08:08)
[2017-07-17] MEDS: ACETAMINOPHEN 325 MG TABLET PO SCH ×3 (08:09→19:44)
[2017-07-17] MEDS: MEMANTINE 10 MG TABLET. PO SCH ×2 (08:10→19:44)
[2017-07-17] MEDS: busPIRone 5 MG TABLET. PO SCH ×2 (08:10→19:43)
[2017-07-17] MEDS: amLODIPine BESYLATE 5 MG TABLET PO SCH (08:11)
[2017-07-17] MEDS: SERTRALINE 50 MG TABLET. PO SCH (08:12)
[2017-07-17] MEDS: traZODone 50 MG TABLET. PO SCH ×3 (08:12→19:44)
[2017-07-17] MEDS: DOCUSATE SODIUM 100 MG CAPSULE PO SCH (08:12)
[2017-07-17] MEDS: POLYETHYLENE GLYCOL 3350 17 GM PACKET. PO SCH (08:14)
[2017-07-17 16:41] VITALS: BP 149/77
[2017-07-17] MEDS: MELATONIN 3 MG TABLET PO SCH (19:43)
[2017-07-17] MEDS: GABAPENTIN 100 MG CAPSULE. PO SCH (19:44)
--- NOTE | 2017-07-17 20:32 | PDOC ---
Exam Mu Demential Exam: Mu Note: Please also refer to the separate dictated note~for this date of service dictated separately.~Patient seen individually. Discussed the patient with Nursing staff reviewed the chart.~Reviewed interim history and current functioning. Reviewed vital signs,~Labs/ Radiology~and current medications noted below. Continue current treatment with the changes noted in the dictated addendum note Assessment: Vital Signs: Vital Signs Date Time Temp Pulse Resp B/P (MAP) Pulse Ox O2 Delivery O2 Flow Rate FiO2 07/17/17 16:41 98.1 78 18 149/77 (101) 95 07/17/17 05:48 Room Air I&O Intake and Output 07/18/17 07:00 Intake Total 720 ml Balance 720 ml Intake Oral 720 ml Current Medications: Meds: Current Medications Acetaminophen (Tylenol) 650 mg PRN Q6HRS PRN PO PAIN / TEMP; Start 07/10/17 at 23:15 Multi-Ingredient Ointment (Analgesic [place]) 1 madan PRN QID PRN TP MUSCLE PAIN; Start 07/10/17 at 23:15 Al Hydroxide/Mg Hydroxide (Mylanta Plus Xs) 15 ml PRN AFTMEALHC PRN PO DYSPEPSIA; Start 07/10/17 at 23:15 Magnesium Hydroxide (Milk Of Magnesia) 2,400 mg PRN QHS PRN PO CONSTIPATION; Start 07/10/17 at 23:15 Buspirone HCl (Buspar) 5 mg BID PO Last administered on 07/17/17 19:43; Start 07/11/17 at 09:00 Memantine (Namenda) 10 mg BID PO Last administered on 07/17/17 19:44; Start 07/11/17 at 09:00 Trazodone HCl (Desyrel) 25 mg TID PO Last administered on 07/17/17 14:09; Start 07/11/17 at 09:00; Stop 07/17/17 at 18:51; Status DC Melatonin 3 mg QHS PO Last administered on 07/17/17 19:43; Start 07/11/17 at 21:00 Acetaminophen (Tylenol) 650 mg TID PO Last administered on 07/17/17 19:44; Start 07/11/17 at 09:00 Amlodipine Besylate (Norvasc) 5 mg DAILY PO Last administered on 07/17/17 08: 11; Start 07/11/17 at 09:00 Aspirin (Aspirin Enteric Coated) 81 mg DAILY PO Last administered on 08:08; Start 07/11/17 at 09:00 Bisacodyl (Dulcolax Supp) 10 mg PRN DAILY PRN RC CONSTIPATION; Start 07/11/17 at 07:30 Docusate Sodium (Colace) 100 mg DAILY PO Last administered on 07/17/17 08:12 ; Start 07/11/17 at 09:00 Gabapentin (Neurontin) 100 mg HS PO Last administered on 07/17/17 19:44; Start 07/11/17 at 21:00 Magnesium Hydroxide (Milk Of Magnesia) 1,200 mg PRN DAILY PRN PO CONSTIPATION; Start 07/11/17 at 07:30 Polyethylene Glycol (miraLAX) 17 gm DAILY PO Last administered on 07/17/17 08 :14; Start 07/11/17 at 09:00 Tramadol HCl (Ultram) 50 mg PRN Q6HRS PRN PO PAIN Last administered on 22:48; Start 07/11/17 at 07:30 Guaifenesin (Mucinex Er) 1,200 mg DAILY PO Last administered on 07/17/17 08: 11; Start 07/11/17 at 09:00 Sertraline HCl (Zoloft) 25 mg DAILY PO Last administered on 07/14/17 08:39; Start 07/13/17 at 09:00; Stop 07/15/17 at 09:00; Status DC Sertraline HCl (Zoloft) 50 mg DAILY PO Last administered on 07/17/17 08:12; Start 07/15/17 at 09:00 Trazodone HCl (Desyrel) 12.5 mg TID PO Last administered on 07/17/17 19:44; Start 07/17/17 at 21:00 Active Scripts Active Reported Tylenol (Acetaminophen) 325 Mg Tablet 650 Mg PO TID Trazodone Hcl 50 Mg Tablet 25 Mg PO TID Ultram (Tramadol HCl) 50 Mg Tablet 50 Mg PO PRN Q6HRS PRN Ondansetron Hcl 4 Mg Tablet 4 Mg PO Mucinex (Guaifenesin) 1,200 Mg Tbmp.12hr 1,200 Mg PO DAILY Miralax (Polyethylene Glycol 3350) 17 Gm Powd.pack 17 Gm PO DAILY Milk Of Magnesia (Magnesium Hydroxide) 400 Mg/5 Ml Oral.susp 2,400 Mg PO PRN DAILY PRN Namenda (Memantine Hcl) 10 Mg Tablet 10 Mg PO BID Melatonin 3 Mg Tablet 3 Mg PO QHS Gabapentin 100 Mg Capsule 100 Mg PO HS Colace (Docusate Sodium) 100 Mg Capsule 100 Mg PO DAILY Buspirone Hcl 5 Mg Tablet 5 Mg PO BID Bisacodyl 10 Mg Supp.rect 10 Mg RC PRN DAILY PRN Aspirin Ec (Aspirin) 81 Mg Tablet.dr 81 Mg PO DAILY PRN Amlodipine Besylate 5 Mg Tablet 5 Mg PO DAILY Diagnosis: Problems: (1) Depression (2) Anxiety disorder (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
--- NOTE | 2017-07-18 02:58 | PN ---
DATE: 07/16/2017 PSYCHIATRIC PROGRESS NOTE This is a late entry for 07/16/2017, covers the elements not covered in my initial note 07/16/2017. SUBJECTIVE: I met with the patient individually evening of 07/16/2017. I returned a call from the patient's , had a long conversation with her about the patient's history. She has been treated outpatient by her primary care physician, Dr. Ena Duffy in [place], [place]. thinks she has been on Seroquel in the past, but unsure of the other psychotropics Dr. Duffy treated the patient on and we will get those records on 07/17/2017. The patient remains confused, scared, wanting to go home, refusing medications at times, repeatedly asking "help help" unsure of what help she wants. 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 REVIEW OF SYSTEMS: Ambulation impaired, in a wheelchair. No CV, , pulmonary, eye and ENT system symptoms on review. Reliability poor. MENTAL STATUS EXAM: Oriented to herself. Insight, judgment, recent and remote memory, attention, concentration, fund of knowledge poor, consistent with her diagnosis mentioned in my initial note. IMPRESSION: Unchanged. PLAN: Continue current psychotropics, trazodone was reduced from 25 mg 3 times a day to 12.5 mg 3 times a day. Maintain Namenda, melatonin, BuSpar, Zoloft. The patient slept 8 hours the previous evening. Review drug interactions, risk/benefit ratio favors no further change for now. KANWAL ZULETA MD DR: SCOTT/giuseppe JOB#: [id number] / [id number]
[2017-07-18 06:07] VITALS: BP 137/94
[2017-07-18] MEDS: MEMANTINE 10 MG TABLET. PO SCH ×2 (08:26→19:44)
[2017-07-18] MEDS: traZODone 50 MG TABLET. PO SCH ×3 (08:26→19:44)
[2017-07-18] MEDS: SERTRALINE 50 MG TABLET. PO SCH (08:26)
[2017-07-18] MEDS: busPIRone 5 MG TABLET. PO SCH ×2 (08:26→19:43)
[2017-07-18] MEDS: ASPIRIN ENTERIC COATED 81 MG TABLET.DR. PO SCH (08:26)
[2017-07-18] MEDS: amLODIPine BESYLATE 5 MG TABLET PO SCH (08:27)
[2017-07-18] MEDS: ACETAMINOPHEN 325 MG TABLET PO SCH ×3 (08:27→19:44)
[2017-07-18] MEDS: DOCUSATE SODIUM 100 MG CAPSULE PO SCH (08:28)
[2017-07-18] MEDS: POLYETHYLENE GLYCOL 3350 17 GM PACKET. PO SCH (08:28)
[2017-07-18] MEDS: DIVALPROEX 125 MG CAP.SPRINK PO SCH (14:17)
[2017-07-18 16:30] VITALS: BP 149/82
[2017-07-18] MEDS: GABAPENTIN 100 MG CAPSULE. PO SCH (19:43)
[2017-07-18] MEDS: MELATONIN 3 MG TABLET PO SCH (19:44)
--- NOTE | 2017-07-18 20:39 | PDOC ---
Exam Mu Demential Exam: Mu Note: Please also refer to the separate dictated note~for this date of service dictated separately.~Patient seen individually. Discussed the patient with Nursing staff reviewed the chart.~Reviewed interim history and current functioning. Reviewed vital signs,~Labs/ Radiology~and current medications noted below. Continue current treatment with the changes noted in the dictated addendum note Assessment: Vital Signs: Vital Signs Date Time Temp Pulse Resp B/P (MAP) Pulse Ox O2 Delivery O2 Flow Rate FiO2 07/18/17 16:30 97.5 72 16 149/82 (104) 94 07/17/17 05:48 Room Air I&O Intake and Output 07/19/17 07:00 Intake Total 800 ml Balance 800 ml Intake Oral 800 ml # Bowel Movements 2 Current Medications: Meds: Current Medications Acetaminophen (Tylenol) 650 mg PRN Q6HRS PRN PO PAIN / TEMP; Start 07/10/17 at 23:15 Multi-Ingredient Ointment (Analgesic [place]) 1 madan PRN QID PRN TP MUSCLE PAIN; Start 07/10/17 at 23:15 Al Hydroxide/Mg Hydroxide (Mylanta Plus Xs) 15 ml PRN AFTMEALHC PRN PO DYSPEPSIA; Start 07/10/17 at 23:15 Magnesium Hydroxide (Milk Of Magnesia) 2,400 mg PRN QHS PRN PO CONSTIPATION; Start 07/10/17 at 23:15 Buspirone HCl (Buspar) 5 mg BID PO Last administered on 07/18/17 19:43; Start 07/11/17 at 09:00 Memantine (Namenda) 10 mg BID PO Last administered on 07/18/17 19:44; Start 07/11/17 at 09:00 Trazodone HCl (Desyrel) 25 mg TID PO Last administered on 07/17/17 14:09; Start 07/11/17 at 09:00; Stop 07/17/17 at 18:51; Status DC Melatonin 3 mg QHS PO Last administered on 07/18/17 19:44; Start 07/11/17 at 21:00 Acetaminophen (Tylenol) 650 mg TID PO Last administered on 07/18/17 19:44; Start 07/11/17 at 09:00 Amlodipine Besylate (Norvasc) 5 mg DAILY PO Last administered on 07/18/17 08: 27; Start 07/11/17 at 09:00 Aspirin (Aspirin Enteric Coated) 81 mg DAILY PO Last administered on 08:26; Start 07/11/17 at 09:00 Bisacodyl (Dulcolax Supp) 10 mg PRN DAILY PRN RC CONSTIPATION; Start 07/11/17 at 07:30 Docusate Sodium (Colace) 100 mg DAILY PO Last administered on 07/18/17 08:28 ; Start 07/11/17 at 09:00 Gabapentin (Neurontin) 100 mg HS PO Last administered on 07/18/17 19:43; Start 07/11/17 at 21:00 Magnesium Hydroxide (Milk Of Magnesia) 1,200 mg PRN DAILY PRN PO CONSTIPATION; Start 07/11/17 at 07:30 Polyethylene Glycol (miraLAX) 17 gm DAILY PO Last administered on 07/18/17 08 :28; Start 07/11/17 at 09:00 Tramadol HCl (Ultram) 50 mg PRN Q6HRS PRN PO PAIN Last administered on 22:48; Start 07/11/17 at 07:30 Guaifenesin (Mucinex Er) 1,200 mg DAILY PO Last administered on 07/18/17 08: 26; Start 07/11/17 at 09:00 Sertraline HCl (Zoloft) 25 mg DAILY PO Last administered on 07/14/17 08:39; Start 07/13/17 at 09:00; Stop 07/15/17 at 09:00; Status DC Sertraline HCl (Zoloft) 50 mg DAILY PO Last administered on 07/18/17 08:26; Start 07/15/17 at 09:00 Trazodone HCl (Desyrel) 12.5 mg TID PO Last administered on 07/18/17 19:44; Start 07/17/17 at 21:00 Divalproex Sodium (Depakote Sprinkles) 125 mg BID92 PO Last administered on 14:17; Start 07/18/17 at 14:00 Olanzapine (ZyPREXA ZYDIS) 1.25 mg PRN Q2HR PRN PO ANXIETY / AGITATION; Start 07/18/17 at 11:15 Active Scripts Active Reported Tylenol (Acetaminophen) 325 Mg Tablet 650 Mg PO TID Trazodone Hcl 50 Mg Tablet 25 Mg PO TID Ultram (Tramadol HCl) 50 Mg Tablet 50 Mg PO PRN Q6HRS PRN Ondansetron Hcl 4 Mg Tablet 4 Mg PO Mucinex (Guaifenesin) 1,200 Mg Tbmp.12hr 1,200 Mg PO DAILY Miralax (Polyethylene Glycol 3350) 17 Gm Powd.pack 17 Gm PO DAILY Milk Of Magnesia (Magnesium Hydroxide) 400 Mg/5 Ml Oral.susp 2,400 Mg PO PRN DAILY PRN Namenda (Memantine Hcl) 10 Mg Tablet 10 Mg PO BID Melatonin 3 Mg Tablet 3 Mg PO QHS Gabapentin 100 Mg Capsule 100 Mg PO HS Colace (Docusate Sodium) 100 Mg Capsule 100 Mg PO DAILY Buspirone Hcl 5 Mg Tablet 5 Mg PO BID Bisacodyl 10 Mg Supp.rect 10 Mg RC PRN DAILY PRN Aspirin Ec (Aspirin) 81 Mg Tablet.dr 81 Mg PO DAILY PRN Amlodipine Besylate 5 Mg Tablet 5 Mg PO DAILY Diagnosis: Problems: (1) Anxiety disorder (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
[2017-07-19 06:19] VITALS: BP 145/64
[2017-07-19] MEDS: ASPIRIN ENTERIC COATED 81 MG TABLET.DR. PO SCH (08:33)
[2017-07-19] MEDS: DOCUSATE SODIUM 100 MG CAPSULE PO SCH (08:33)
[2017-07-19] MEDS: DIVALPROEX 125 MG CAP.SPRINK PO SCH ×2 (08:33→14:19)
[2017-07-19] MEDS: traZODone 50 MG TABLET. PO SCH ×3 (08:33→19:28)
[2017-07-19] MEDS: MEMANTINE 10 MG TABLET. PO SCH ×2 (08:33→19:28)
[2017-07-19] MEDS: SERTRALINE 50 MG TABLET. PO SCH (08:33)
[2017-07-19] MEDS: POLYETHYLENE GLYCOL 3350 17 GM PACKET. PO SCH ×2 (08:34→09:00)
[2017-07-19] MEDS: amLODIPine BESYLATE 5 MG TABLET PO SCH (08:34)
[2017-07-19] MEDS: busPIRone 5 MG TABLET. PO SCH ×2 (08:34→19:28)
[2017-07-19] MEDS: ACETAMINOPHEN 325 MG TABLET PO SCH ×3 (08:34→19:28)
[2017-07-19 16:38] VITALS: BP 128/61
[2017-07-19] MEDS: GABAPENTIN 100 MG CAPSULE. PO SCH (19:28)
[2017-07-19] MEDS: MELATONIN 3 MG TABLET PO SCH (19:28)
--- NOTE | 2017-07-19 20:46 | PDOC ---
Exam Mu Demential Exam: Mu Note: Please also refer to the separate dictated note~for this date of service dictated separately.~Patient seen individually. Discussed the patient with Nursing staff reviewed the chart.~Reviewed interim history and current functioning. Reviewed vital signs,~Labs/ Radiology~and current medications noted below. Continue current treatment with the changes noted in the dictated addendum note Assessment: Vital Signs: Vital Signs Date Time Temp Pulse Resp B/P (MAP) Pulse Ox O2 Delivery O2 Flow Rate FiO2 07/19/17 16:38 98.8 78 20 128/61 (83) 95 07/17/17 05:48 Room Air I&O Intake and Output 07/20/17 07:00 Intake Total 720 ml Balance 720 ml Intake Oral 720 ml Current Medications: Meds: Current Medications Acetaminophen (Tylenol) 650 mg PRN Q6HRS PRN PO PAIN / TEMP; Start 07/10/17 at 23:15 Multi-Ingredient Ointment (Analgesic [place]) 1 madan PRN QID PRN TP MUSCLE PAIN; Start 07/10/17 at 23:15 Al Hydroxide/Mg Hydroxide (Mylanta Plus Xs) 15 ml PRN AFTMEALHC PRN PO DYSPEPSIA; Start 07/10/17 at 23:15 Magnesium Hydroxide (Milk Of Magnesia) 2,400 mg PRN QHS PRN PO CONSTIPATION; Start 07/10/17 at 23:15 Buspirone HCl (Buspar) 5 mg BID PO Last administered on 07/19/17 19:28; Start 07/11/17 at 09:00 Memantine (Namenda) 10 mg BID PO Last administered on 07/19/17 19:28; Start 07/11/17 at 09:00 Trazodone HCl (Desyrel) 25 mg TID PO Last administered on 07/17/17 14:09; Start 07/11/17 at 09:00; Stop 07/17/17 at 18:51; Status DC Melatonin 3 mg QHS PO Last administered on 07/19/17 19:28; Start 07/11/17 at 21:00 Acetaminophen (Tylenol) 650 mg TID PO Last administered on 07/19/17 19:28; Start 07/11/17 at 09:00 Amlodipine Besylate (Norvasc) 5 mg DAILY PO Last administered on 07/19/17 08: 34; Start 07/11/17 at 09:00 Aspirin (Aspirin Enteric Coated) 81 mg DAILY PO Last administered on 08:33; Start 07/11/17 at 09:00 Bisacodyl (Dulcolax Supp) 10 mg PRN DAILY PRN RC CONSTIPATION; Start 07/11/17 at 07:30 Docusate Sodium (Colace) 100 mg DAILY PO Last administered on 07/19/17 08:33 ; Start 07/11/17 at 09:00 Gabapentin (Neurontin) 100 mg HS PO Last administered on 07/19/17 19:28; Start 07/11/17 at 21:00 Magnesium Hydroxide (Milk Of Magnesia) 1,200 mg PRN DAILY PRN PO CONSTIPATION; Start 07/11/17 at 07:30 Polyethylene Glycol (miraLAX) 17 gm DAILY PO Last administered on 07/18/17 08 :28; Start 07/11/17 at 09:00 Tramadol HCl (Ultram) 50 mg PRN Q6HRS PRN PO PAIN Last administered on 22:48; Start 07/11/17 at 07:30 Guaifenesin (Mucinex Er) 1,200 mg DAILY PO Last administered on 07/19/17 08: 33; Start 07/11/17 at 09:00 Sertraline HCl (Zoloft) 25 mg DAILY PO Last administered on 07/14/17 08:39; Start 07/13/17 at 09:00; Stop 07/15/17 at 09:00; Status DC Sertraline HCl (Zoloft) 50 mg DAILY PO Last administered on 07/19/17 08:33; Start 07/15/17 at 09:00 Trazodone HCl (Desyrel) 12.5 mg TID PO Last administered on 07/19/17 19:28; Start 07/17/17 at 21:00 Divalproex Sodium (Depakote Sprinkles) 125 mg BID92 PO Last administered on 14:19; Start 07/18/17 at 14:00 Olanzapine (ZyPREXA ZYDIS) 1.25 mg PRN Q2HR PRN PO ANXIETY / AGITATION Last administered on 07/19/17 16:45; Start 07/18/17 at 11:15 Active Scripts Active Reported Tylenol (Acetaminophen) 325 Mg Tablet 650 Mg PO TID Trazodone Hcl 50 Mg Tablet 25 Mg PO TID Ultram (Tramadol HCl) 50 Mg Tablet 50 Mg PO PRN Q6HRS PRN Ondansetron Hcl 4 Mg Tablet 4 Mg PO Mucinex (Guaifenesin) 1,200 Mg Tbmp.12hr 1,200 Mg PO DAILY Miralax (Polyethylene Glycol 3350) 17 Gm Powd.pack 17 Gm PO DAILY Milk Of Magnesia (Magnesium Hydroxide) 400 Mg/5 Ml Oral.susp 2,400 Mg PO PRN DAILY PRN Namenda (Memantine Hcl) 10 Mg Tablet 10 Mg PO BID Melatonin 3 Mg Tablet 3 Mg PO QHS Gabapentin 100 Mg Capsule 100 Mg PO HS Colace (Docusate Sodium) 100 Mg Capsule 100 Mg PO DAILY Buspirone Hcl 5 Mg Tablet 5 Mg PO BID Bisacodyl 10 Mg Supp.rect 10 Mg RC PRN DAILY PRN Aspirin Ec (Aspirin) 81 Mg Tablet.dr 81 Mg PO DAILY PRN Amlodipine Besylate 5 Mg Tablet 5 Mg PO DAILY Diagnosis: Problems: (1) Depression (2) Anxiety disorder (3) Dementia in Alzheimer's disease with depression (4) Dementia in Alzheimer's disease with delusions (5) Dementia, vascular, with depression (6) Dementia, vascular, with delusions (7) Impulse control disorder KANWAL ZULETA MD Jul 19, 2017 20:46
--- NOTE | 2017-07-20 03:54 | PN ---
DATE: 07/18/2017 This late entry 07/18/2017 covers elements not covered in my initial note of 07/18/2017. Met with the patient evening of 07/18/2017. She was staffed at a treatment team meeting with the entire team morning of 07/18/2017. Her , Elia, attended the treatment team meeting. The patient slept 6 hours previous evening. Appetite 50-75%. I have reviewed about [address] Duffy, her primary care physician, but prior psychotropics are not mentioned there. She remains anxious, restless, confused. REVIEW OF SYSTEMS: Ambulation impaired, in a wheelchair. No CV, , pulmonary, eye, ENT system symptoms on review. Reliability poor. MENTAL STATUS EXAM: Oriented to herself. Insight, judgment, recent and remote memory, attention, concentration, fund of knowledge poor, consistent with her diagnosis mentioned in my initial note. LABORATORY DATA: Reviewed. PLAN: Continue current psychotropics. Start Depakote Sprinkles 125 mg twice a day. Check CBC, CMP, valproic acid level in 3 days. We will add Zyprexa p.r.n. and continue BuSpar, melatonin, Namenda, and trazodone scheduled and Zoloft. We will make further adjustments as clinically indicated. Reviewed drug interactions. Risk/benefit ratio favors no further change. MAN Dariel ZULETA MD DR: SCOTT/giuseppe JOB#: [id number] / [id number]
[2017-07-20 06:42] VITALS: BP 136/77
[2017-07-20] MEDS: busPIRone 5 MG TABLET. PO SCH ×2 (08:09→20:23)
[2017-07-20] MEDS: MEMANTINE 10 MG TABLET. PO SCH ×2 (08:09→20:23)
[2017-07-20] MEDS: amLODIPine BESYLATE 5 MG TABLET PO SCH (08:09)
[2017-07-20] MEDS: traZODone 50 MG TABLET. PO SCH ×3 (08:09→20:24)
[2017-07-20] MEDS: DOCUSATE SODIUM 100 MG CAPSULE PO SCH (08:09)
[2017-07-20] MEDS: ASPIRIN ENTERIC COATED 81 MG TABLET.DR. PO SCH (08:09)
[2017-07-20] MEDS: ACETAMINOPHEN 325 MG TABLET PO SCH ×3 (08:09→20:23)
[2017-07-20] MEDS: CHOLECALCIFEROL (VITAMIN D3) 50,000 UNIT CAPSULE PO SCH (11:00)
[2017-07-20] MEDS: POLYETHYLENE GLYCOL 3350 17 GM PACKET. PO SCH (11:19)
[2017-07-20] MEDS: DIVALPROEX 125 MG CAP.SPRINK PO SCH ×2 (11:19→14:18)
[2017-07-20] MEDS: SERTRALINE 50 MG TABLET. PO SCH (11:20)
[2017-07-20 16:13] VITALS: BP 138/65
[2017-07-20] MEDS: GABAPENTIN 100 MG CAPSULE. PO SCH (20:23)
[2017-07-20] MEDS: MELATONIN 3 MG TABLET PO SCH (20:23)
--- NOTE | 2017-07-20 21:50 | PDOC ---
Exam Mu Demential Exam: Mu Note: Please also refer to the separate dictated note~for this date of service dictated separately.~Patient seen individually. Discussed the patient with Nursing staff reviewed the chart.~Reviewed interim history and current functioning. Reviewed vital signs,~Labs/ Radiology~and current medications noted below. Continue current treatment with the changes noted in the dictated addendum note Assessment: Vital Signs: Vital Signs Date Time Temp Pulse Resp B/P (MAP) Pulse Ox O2 Delivery O2 Flow Rate FiO2 07/20/17 16:13 97.5 81 20 138/65 (89) 95 Room Air I&O Intake and Output 07/21/17 07:00 Intake Total 1080 ml Balance 1080 ml Intake Oral 1080 ml Current Medications: Meds: Current Medications Acetaminophen (Tylenol) 650 mg PRN Q6HRS PRN PO PAIN / TEMP; Start 07/10/17 at 23:15 Multi-Ingredient Ointment (Analgesic [place]) 1 madan PRN QID PRN TP MUSCLE PAIN; Start 07/10/17 at 23:15 Al Hydroxide/Mg Hydroxide (Mylanta Plus Xs) 15 ml PRN AFTMEALHC PRN PO DYSPEPSIA; Start 07/10/17 at 23:15 Magnesium Hydroxide (Milk Of Magnesia) 2,400 mg PRN QHS PRN PO CONSTIPATION; Start 07/10/17 at 23:15 Buspirone HCl (Buspar) 5 mg BID PO Last administered on 07/20/17 08:09; Start 07/11/17 at 09:00; Stop 07/20/17 at 18:53; Status DC Memantine (Namenda) 10 mg BID PO Last administered on 07/20/17 20:23; Start 07/11/17 at 09:00 Trazodone HCl (Desyrel) 25 mg TID PO Last administered on 07/17/17 14:09; Start 07/11/17 at 09:00; Stop 07/17/17 at 18:51; Status DC Melatonin 3 mg QHS PO Last administered on 07/20/17 20:23; Start 07/11/17 at 21:00 Acetaminophen (Tylenol) 650 mg TID PO Last administered on 07/20/17 20:23; Start 07/11/17 at 09:00 Amlodipine Besylate (Norvasc) 5 mg DAILY PO Last administered on 07/20/17 08: 09; Start 07/11/17 at 09:00 Aspirin (Aspirin Enteric Coated) 81 mg DAILY PO Last administered on 08:09; Start 07/11/17 at 09:00 Bisacodyl (Dulcolax Supp) 10 mg PRN DAILY PRN RC CONSTIPATION; Start 07/11/17 at 07:30 Docusate Sodium (Colace) 100 mg DAILY PO Last administered on 07/20/17 08:09 ; Start 07/11/17 at 09:00 Gabapentin (Neurontin) 100 mg HS PO Last administered on 07/20/17 20:23; Start 07/11/17 at 21:00 Magnesium Hydroxide (Milk Of Magnesia) 1,200 mg PRN DAILY PRN PO CONSTIPATION; Start 07/11/17 at 07:30 Polyethylene Glycol (miraLAX) 17 gm DAILY PO Last administered on 07/20/17 11 :19; Start 07/11/17 at 09:00 Tramadol HCl (Ultram) 50 mg PRN Q6HRS PRN PO PAIN Last administered on 22:48; Start 07/11/17 at 07:30 Guaifenesin (Mucinex Er) 1,200 mg DAILY PO Last administered on 07/20/17 11: 19; Start 07/11/17 at 09:00 Sertraline HCl (Zoloft) 25 mg DAILY PO Last administered on 07/14/17 08:39; Start 07/13/17 at 09:00; Stop 07/15/17 at 09:00; Status DC Sertraline HCl (Zoloft) 50 mg DAILY PO Last administered on 07/20/17 11:20; Start 07/15/17 at 09:00 Trazodone HCl (Desyrel) 12.5 mg TID PO Last administered on 07/20/17 20:24; Start 07/17/17 at 21:00 Divalproex Sodium (Depakote Sprinkles) 125 mg BID92 PO Last administered on 14:18; Start 07/18/17 at 14:00 Olanzapine (ZyPREXA ZYDIS) 1.25 mg PRN Q2HR PRN PO ANXIETY / AGITATION Last administered on 07/20/17 11:19; Start 07/18/17 at 11:15 Vitamin D (Vitamin D3) 50,000 unit WEEKLY PO Last administered on 07/20/17 11 :00; Start 07/20/17 at 11:00 Buspirone HCl (Buspar) 5 mg QID PO Last administered on 07/20/17 20:23; Start 07/20/17 at 21:00 Active Scripts Active Reported Tylenol (Acetaminophen) 325 Mg Tablet 650 Mg PO TID Trazodone Hcl 50 Mg Tablet 25 Mg PO TID Ultram (Tramadol HCl) 50 Mg Tablet 50 Mg PO PRN Q6HRS PRN Ondansetron Hcl 4 Mg Tablet 4 Mg PO Mucinex (Guaifenesin) 1,200 Mg Tbmp.12hr 1,200 Mg PO DAILY Miralax (Polyethylene Glycol 3350) 17 Gm Powd.pack 17 Gm PO DAILY Milk Of Magnesia (Magnesium Hydroxide) 400 Mg/5 Ml Oral.susp 2,400 Mg PO PRN DAILY PRN Namenda (Memantine Hcl) 10 Mg Tablet 10 Mg PO BID Melatonin 3 Mg Tablet 3 Mg PO QHS Gabapentin 100 Mg Capsule 100 Mg PO HS Colace (Docusate Sodium) 100 Mg Capsule 100 Mg PO DAILY Buspirone Hcl 5 Mg Tablet 5 Mg PO BID Bisacodyl 10 Mg Supp.rect 10 Mg RC PRN DAILY PRN Aspirin Ec (Aspirin) 81 Mg Tablet.dr 81 Mg PO DAILY PRN Amlodipine Besylate 5 Mg Tablet 5 Mg PO DAILY Diagnosis: Problems: (1) Depression (2) Anxiety disorder (3) Dementia in Alzheimer's disease with depression (4) Dementia in Alzheimer's disease with delusions (5) Dementia, vascular, with depression (6) Dementia, vascular, with delusions (7) Impulse control disorder KANWAL ZULETA MD Jul 20, 2017 21:50
--- NOTE | 2017-07-21 01:11 | PN ---
DATE: 07/19/2017 This late entry 07/19/2017 covers elements not covered in my initial note of 07/19/2017. SUBJECTIVE: I met with the patient in the evening of 07/19/2017. The patient slept 6-3/4 hours previous evening, was extremely anxious in the morning, needy, attention , helpless, with nursing report later in the day she was better and again in the evening more anxious, repeatedly calling out help, help, looking for her , Elia. REVIEW OF SYSTEMS: Ambulation impaired, in a wheelchair. No CV, , pulmonary, eye, ENT system symptoms on review. Reliability poor. MENTAL STATUS EXAM: Oriented to herself. Insight, judgment, recent and remote memory, attention, concentration, fund of knowledge poor, consistent with her diagnosis mentioned in my initial note. PLAN: Continue current psychotropics. Check labs level on the Depakote in 2 days. Trazodone was reduced, maintain Namenda, BuSpar, melatonin and Zoloft. May consider adding Seroquel depending on her progress. Reviewed drug interactions, risk/benefit ratio favors no further change. MAN Dariel ZULETA MD DR: SCOTT/giuseppe JOB#: [id number] / [id number]
[2017-07-21 06:15] VITALS: BP 166/68
[2017-07-21 08:24] LABS: BASO # 0.1 x10^3/uL (0.0-0.2); BASO % 1 % (0-3); EOS # 0.4 x10^3/uL (0.0-0.7); EOS % 5 % (0-3); HEMATOCRIT 41.4 % (36.0-47.0); HEMOGLOBIN 14.4 g/dL (12.0-15.5); LYMPH # 1.7 x10^3/uL (1.0-4.8); LYMPH % 17 % (24-48); MEAN CORPUSCULAR HEMOGLOBIN 33 pg (25-35); MEAN CORPUSCULAR HGB CONC 35 g/dL (31-37); MEAN CORPUSCULAR VOLUME 95 fL (79-100); MONO # 0.9 x10^3/uL (0.0-1.1); MONO % 10 % (0-9); NEUT # 6.6 x10^3uL (1.8-7.7); NEUT % 68 % (31-73); PLATELET COUNT 694 x10^3/uL (140-400); RED BLOOD COUNT 4.34 x10^6/uL (3.50-5.40); RED CELL DISTRIBUTION WIDTH 16.6 % (11.5-14.5); WHITE BLOOD COUNT 9.7 x10^3/uL (4.0-11.0)
[2017-07-21 08:32] LABS: ALBUMIN 3.3 g/dL (3.4-5.0); ALBUMIN/GLOBULIN RATIO 0.9 (1.0-1.7); ALK PHOS 117 U/L (46-116); ALT (SGPT) 19 U/L (14-59); ANION GAP 7 (6-14); AST (SGOT) 15 U/L (15-37); BLOOD UREA NITROGEN 11 mg/dL (7-20); BUN/CREATININE RATIO 18 (6-20); CALCIUM 9.2 mg/dL (8.5-10.1); CARBON DIOXIDE 28 mmol/L (21-32); CHLORIDE 102 mmol/L (98-107); CREATININE 0.6 mg/dL (0.6-1.0); GFR 96.7; GLUCOSE 94 mg/dL (70-99); SODIUM 137 mmol/L (136-145); TOTAL BILIRUBIN 0.4 mg/dL (0.2-1.0); TOTAL PROTEIN 6.8 g/dL (6.4-8.2)
[2017-07-21] MEDS: ACETAMINOPHEN 325 MG TABLET PO SCH ×3 (08:40→19:23)
[2017-07-21] MEDS: POLYETHYLENE GLYCOL 3350 17 GM PACKET. PO SCH (08:40)
[2017-07-21] MEDS: amLODIPine BESYLATE 5 MG TABLET PO SCH (08:42)
[2017-07-21] MEDS: ASPIRIN ENTERIC COATED 81 MG TABLET.DR. PO SCH (08:42)
[2017-07-21] MEDS: traZODone 50 MG TABLET. PO SCH ×3 (08:43→19:23)
[2017-07-21] MEDS: MEMANTINE 10 MG TABLET. PO SCH ×2 (08:43→19:23)
[2017-07-21] MEDS: SERTRALINE 50 MG TABLET. PO SCH (08:43)
[2017-07-21] MEDS: DOCUSATE SODIUM 100 MG CAPSULE PO SCH (08:43)
[2017-07-21] MEDS: busPIRone 5 MG TABLET. PO SCH ×4 (08:43→19:23)
[2017-07-21] MEDS: DIVALPROEX 125 MG CAP.SPRINK PO SCH ×2 (08:43→13:37)
[2017-07-21 08:49] LABS: VAL ACID 20 mcg/mL (50-100)
--- NOTE | 2017-07-21 09:55 | PN ---
DATE: 07/20/2017 PSYCHIATRIC PROGRESS NOTE SUBJECTIVE: This is a late entry 07/20/2017, covers elements not covered in my initial note of 07/20/2017. Met with the patient in the evening of 07/20/2017. The patient remains quite anxious, restless, obsessive, repeatedly calling out, "help, help, help." REVIEW OF SYSTEMS: Ambulation impaired, in a wheelchair. No CV, , pulmonary, eye, ENT system symptoms on review. Reliability poor. MENTAL STATUS EXAM: Oriented to herself. Insight, judgment, recent and remote memory, attention, concentration, fund of knowledge poor, consistent with her diagnosis mentioned in my initial note. PLAN: Increase BuSpar from 5 mg b.i.d. to 5 mg 4 times a day. Continue Depakote 125 mg b.i.d. Check CBC, CMP, valproic acid level in the morning of 07/21/2017. Maintain the rest of her psychotropics, adjust post-labs on 07/21/2017. Review drug interactions, risk/benefit ratio favors no further. MAN Dariel ZULETA MD DR: SCOTT/giuseppe JOB#: [id number] / [id number]
[2017-07-21 16:17] VITALS: BP 123/83
[2017-07-21] MEDS: GABAPENTIN 100 MG CAPSULE. PO SCH (19:23)
[2017-07-21] MEDS: MELATONIN 3 MG TABLET PO SCH (19:23)
--- NOTE | 2017-07-21 20:50 | PDOC ---
Exam Mu Demential Exam: Mu Note: Please also refer to the separate dictated note~for this date of service dictated separately.~Patient seen individually. Discussed the patient with Nursing staff reviewed the chart.~Reviewed interim history and current functioning. Reviewed vital signs,~Labs/ Radiology~and current medications noted below. Continue current treatment with the changes noted in the dictated addendum note Assessment: Vital Signs: Vital Signs Date Time Temp Pulse Resp B/P (MAP) Pulse Ox O2 Delivery O2 Flow Rate FiO2 07/21/17 16:17 98.0 83 20 123/83 (96) 96 Room Air I&O Intake and Output 07/22/17 07:00 Intake Total 720 ml Balance 720 ml Intake Oral 720 ml # Bowel Movements 1 Labs: Laboratory Tests Test 07/21/17 07:43 White Blood Count 9.7 x10^3/uL (4.0-11.0) Red Blood Count 4.34 x10^6/uL (3.50-5.40) Hemoglobin 14.4 g/dL (12.0-15.5) Hematocrit 41.4 % (36.0-47.0) Mean Corpuscular Volume 95 fL (79-100) Mean Corpuscular Hemoglobin 33 pg (25-35) Mean Corpuscular Hemoglobin Concent 35 g/dL (31-37) Red Cell Distribution Width 16.6 % (11.5-14.5) H Platelet Count 694 x10^3/uL (140-400) H Neutrophils (%) (Auto) 68 % (31-73) Lymphocytes (%) (Auto) 17 % (24-48) L Monocytes (%) (Auto) 10 % (0-9) H Eosinophils (%) (Auto) 5 % (0-3) H Basophils (%) (Auto) 1 % (0-3) Neutrophils # (Auto) 6.6 x10^3uL (1.8-7.7) Lymphocytes # (Auto) 1.7 x10^3/uL (1.0-4.8) Monocytes # (Auto) 0.9 x10^3/uL (0.0-1.1) Eosinophils # (Auto) 0.4 x10^3/uL (0.0-0.7) Basophils # (Auto) 0.1 x10^3/uL (0.0-0.2) Sodium Level 137 mmol/L (136-145) Potassium Level 4.0 mmol/L (3.5-5.1) Chloride Level 102 mmol/L (98-107) Carbon Dioxide Level 28 mmol/L (21-32) Anion Gap 7 (6-14) Blood Urea Nitrogen 11 mg/dL (7-20) Creatinine 0.6 mg/dL (0.6-1.0) Estimated GFR (Cockcroft-Gault) 96.7 BUN/Creatinine Ratio 18 (6-20) Glucose Level 94 mg/dL (70-99) Calcium Level 9.2 mg/dL (8.5-10.1) Total Bilirubin 0.4 mg/dL (0.2-1.0) Aspartate Amino Transferase (AST) 15 U/L (15-37) Alanine Aminotransferase (ALT) 19 U/L (14-59) Alkaline Phosphatase 117 U/L (46-116) H Total Protein 6.8 g/dL (6.4-8.2) Albumin 3.3 g/dL (3.4-5.0) L Albumin/Globulin Ratio 0.9 (1.0-1.7) L Valproic Acid Level 20 mcg/mL (50-100) L Valproic Acid Last Dose Date 07/20/17 Valproic Acid Last Dose Time 2100 Current Medications: Meds: Current Medications Acetaminophen (Tylenol) 650 mg PRN Q6HRS PRN PO PAIN / TEMP; Start 07/10/17 at 23:15 Multi-Ingredient Ointment (Analgesic [place]) 1 madan PRN QID PRN TP MUSCLE PAIN; Start 07/10/17 at 23:15 Al Hydroxide/Mg Hydroxide (Mylanta Plus Xs) 15 ml PRN AFTMEALHC PRN PO DYSPEPSIA; Start 07/10/17 at 23:15 Magnesium Hydroxide (Milk Of Magnesia) 2,400 mg PRN QHS PRN PO CONSTIPATION; Start 07/10/17 at 23:15 Buspirone HCl (Buspar) 5 mg BID PO Last administered on 07/20/17 08:09; Start 07/11/17 at 09:00; Stop 07/20/17 at 18:53; Status DC Memantine (Namenda) 10 mg BID PO Last administered on 07/21/17 19:23; Start 07/11/17 at 09:00 Trazodone HCl (Desyrel) 25 mg TID PO Last administered on 07/17/17 14:09; Start 07/11/17 at 09:00; Stop 07/17/17 at 18:51; Status DC Melatonin 3 mg QHS PO Last administered on 07/21/17 19:23; Start 07/11/17 at 21:00 Acetaminophen (Tylenol) 650 mg TID PO Last administered on 07/21/17 19:23; Start 07/11/17 at 09:00 Amlodipine Besylate (Norvasc) 5 mg DAILY PO Last administered on 07/21/17 08: 42; Start 07/11/17 at 09:00 Aspirin (Aspirin Enteric Coated) 81 mg DAILY PO Last administered on 08:42; Start 07/11/17 at 09:00 Bisacodyl (Dulcolax Supp) 10 mg PRN DAILY PRN RC CONSTIPATION; Start 07/11/17 at 07:30 Docusate Sodium (Colace) 100 mg DAILY PO Last administered on 07/21/17 08:43 ; Start 07/11/17 at 09:00 Gabapentin (Neurontin) 100 mg HS PO Last administered on 07/21/17 19:23; Start 07/11/17 at 21:00 Magnesium Hydroxide (Milk Of Magnesia) 1,200 mg PRN DAILY PRN PO CONSTIPATION; Start 07/11/17 at 07:30 Polyethylene Glycol (miraLAX) 17 gm DAILY PO Last administered on 07/21/17 08 :40; Start 07/11/17 at 09:00 Tramadol HCl (Ultram) 50 mg PRN Q6HRS PRN PO PAIN Last administered on 22:48; Start 07/11/17 at 07:30 Guaifenesin (Mucinex Er) 1,200 mg DAILY PO Last administered on 07/21/17 08: 43; Start 07/11/17 at 09:00 Sertraline HCl (Zoloft) 25 mg DAILY PO Last administered on 07/14/17 08:39; Start 07/13/17 at 09:00; Stop 07/15/17 at 09:00; Status DC Sertraline HCl (Zoloft) 50 mg DAILY PO Last administered on 07/21/17 08:43; Start 07/15/17 at 09:00 Trazodone HCl (Desyrel) 12.5 mg TID PO Last administered on 07/21/17 19:23; Start 07/17/17 at 21:00 Divalproex Sodium (Depakote Sprinkles) 125 mg BID92 PO Last administered on 13:37; Start 07/18/17 at 14:00 Olanzapine (ZyPREXA ZYDIS) 1.25 mg PRN Q2HR PRN PO ANXIETY / AGITATION Last administered on 07/20/17 11:19; Start 07/18/17 at 11:15 Vitamin D (Vitamin D3) 50,000 unit WEEKLY PO Last administered on 07/20/17 11 :00; Start 07/20/17 at 11:00 Buspirone HCl (Buspar) 5 mg QID PO Last administered on 07/21/17 19:23; Start 07/20/17 at 21:00 Active Scripts Active Reported Tylenol (Acetaminophen) 325 Mg Tablet 650 Mg PO TID Trazodone Hcl 50 Mg Tablet 25 Mg PO TID Ultram (Tramadol HCl) 50 Mg Tablet 50 Mg PO PRN Q6HRS PRN Ondansetron Hcl 4 Mg Tablet 4 Mg PO Mucinex (Guaifenesin) 1,200 Mg Tbmp.12hr 1,200 Mg PO DAILY Miralax (Polyethylene Glycol 3350) 17 Gm Powd.pack 17 Gm PO DAILY Milk Of Magnesia (Magnesium Hydroxide) 400 Mg/5 Ml Oral.susp 2,400 Mg PO PRN DAILY PRN Namenda (Memantine Hcl) 10 Mg Tablet 10 Mg PO BID Melatonin 3 Mg Tablet 3 Mg PO QHS Gabapentin 100 Mg Capsule 100 Mg PO HS Colace (Docusate Sodium) 100 Mg Capsule 100 Mg PO DAILY Buspirone Hcl 5 Mg Tablet 5 Mg PO BID Bisacodyl 10 Mg Supp.rect 10 Mg RC PRN DAILY PRN Aspirin Ec (Aspirin) 81 Mg Tablet.dr 81 Mg PO DAILY PRN Amlodipine Besylate 5 Mg Tablet 5 Mg PO DAILY Diagnosis: Problems: (1) Depression (2) Anxiety disorder (3) Dementia in Alzheimer's disease with depression (4) Dementia in Alzheimer's disease with delusions (5) Dementia, vascular, with depression (6) Dementia, vascular, with delusions (7) Impulse control disorder KANWAL ZULETA MD Jul 21, 2017 20:50
--- NOTE | 2017-07-22 05:27 | PN ---
DATE: 07/17/2017 This late entry 07/17/2017 covers elements not covered in my initial note of 07/17/2017. I met with the patient evening of 07/17/2017. She remains confused, anxious, restless at times, more so in the afternoon when she was better, but the anxiety was worse in the morning. She appears scared at times, somewhat paranoid, but redirects. REVIEW OF SYSTEMS: Ambulation impaired, in a wheelchair. No CV, , pulmonary, eye, ENT system symptoms on review. Reliability poor. MENTAL STATUS EXAM: Oriented to herself. Insight, judgment, recent and remote memory, attention, concentration, fund of knowledge poor, consistent with her diagnosis. She is wanting to call Elia, her as I met with her, kind of fixated on this. LABORATORY DATA: Reviewed. IMPRESSION: Unchanged. PLAN: Continue current psychotropics. Trazodone scheduled has been reduced. May consider adding Depakote as a mood stabilizer with or without Seroquel. Reviewed drug interactions. Risk/benefit ratio favors no further change. KANWAL ZULETA MD DR: SCOTT/giuseppe JOB#: [id number] / [id number]
[2017-07-22 07:23] VITALS: BP 165/84
[2017-07-22] MEDS: DOCUSATE SODIUM 100 MG CAPSULE PO SCH (08:08)
[2017-07-22] MEDS: ASPIRIN ENTERIC COATED 81 MG TABLET.DR. PO SCH (08:09)
[2017-07-22] MEDS: traZODone 50 MG TABLET. PO SCH ×3 (08:09→19:17)
[2017-07-22] MEDS: POLYETHYLENE GLYCOL 3350 17 GM PACKET. PO SCH (08:09)
[2017-07-22] MEDS: busPIRone 5 MG TABLET. PO SCH ×4 (08:09→19:17)
[2017-07-22] MEDS: ACETAMINOPHEN 325 MG TABLET PO SCH ×3 (08:09→19:17)
[2017-07-22] MEDS: amLODIPine BESYLATE 5 MG TABLET PO SCH (08:09)
[2017-07-22] MEDS: DIVALPROEX 125 MG CAP.SPRINK PO SCH ×2 (08:09→13:47)
[2017-07-22] MEDS: SERTRALINE 50 MG TABLET. PO SCH (08:10)
[2017-07-22] MEDS: MEMANTINE 10 MG TABLET. PO SCH ×2 (08:10→19:17)
[2017-07-22 16:13] VITALS: BP 150/79
[2017-07-22] MEDS: GABAPENTIN 100 MG CAPSULE. PO SCH (19:17)
[2017-07-22] MEDS: MELATONIN 3 MG TABLET PO SCH (19:17)
--- NOTE | 2017-07-22 21:27 | PDOC ---
Exam Mu Demential Exam: Mu Note: Please also refer to the separate dictated note~for this date of service dictated separately.~Patient seen individually. Discussed the patient with Nursing staff reviewed the chart.~Reviewed interim history and current functioning. Reviewed vital signs,~Labs/ Radiology~and current medications noted below. Continue current treatment with the changes noted in the dictated addendum note Assessment: Vital Signs: Vital Signs Date Time Temp Pulse Resp B/P (MAP) Pulse Ox O2 Delivery O2 Flow Rate FiO2 07/22/17 16:13 97.4 86 20 150/79 (102) 95 Room Air I&O Intake and Output 07/23/17 07:00 Intake Total 960 ml Balance 960 ml Intake Oral 960 ml Current Medications: Meds: Current Medications Acetaminophen (Tylenol) 650 mg PRN Q6HRS PRN PO PAIN / TEMP; Start 07/10/17 at 23:15 Multi-Ingredient Ointment (Analgesic [place]) 1 madan PRN QID PRN TP MUSCLE PAIN; Start 07/10/17 at 23:15 Al Hydroxide/Mg Hydroxide (Mylanta Plus Xs) 15 ml PRN AFTMEALHC PRN PO DYSPEPSIA; Start 07/10/17 at 23:15 Magnesium Hydroxide (Milk Of Magnesia) 2,400 mg PRN QHS PRN PO CONSTIPATION; Start 07/10/17 at 23:15 Buspirone HCl (Buspar) 5 mg BID PO Last administered on 07/20/17 08:09; Start 07/11/17 at 09:00; Stop 07/20/17 at 18:53; Status DC Memantine (Namenda) 10 mg BID PO Last administered on 07/22/17 19:17; Start 07/11/17 at 09:00 Trazodone HCl (Desyrel) 25 mg TID PO Last administered on 07/17/17 14:09; Start 07/11/17 at 09:00; Stop 07/17/17 at 18:51; Status DC Melatonin 3 mg QHS PO Last administered on 07/22/17 19:17; Start 07/11/17 at 21:00 Acetaminophen (Tylenol) 650 mg TID PO Last administered on 07/22/17 19:17; Start 07/11/17 at 09:00 Amlodipine Besylate (Norvasc) 5 mg DAILY PO Last administered on 07/22/17 08: 09; Start 07/11/17 at 09:00 Aspirin (Aspirin Enteric Coated) 81 mg DAILY PO Last administered on 08:09; Start 07/11/17 at 09:00 Bisacodyl (Dulcolax Supp) 10 mg PRN DAILY PRN RC CONSTIPATION; Start 07/11/17 at 07:30 Docusate Sodium (Colace) 100 mg DAILY PO Last administered on 07/22/17 08:08 ; Start 07/11/17 at 09:00 Gabapentin (Neurontin) 100 mg HS PO Last administered on 07/22/17 19:17; Start 07/11/17 at 21:00 Magnesium Hydroxide (Milk Of Magnesia) 1,200 mg PRN DAILY PRN PO CONSTIPATION; Start 07/11/17 at 07:30 Polyethylene Glycol (miraLAX) 17 gm DAILY PO Last administered on 07/22/17 08 :09; Start 07/11/17 at 09:00 Tramadol HCl (Ultram) 50 mg PRN Q6HRS PRN PO PAIN Last administered on 22:48; Start 07/11/17 at 07:30 Guaifenesin (Mucinex Er) 1,200 mg DAILY PO Last administered on 07/22/17 08: 10; Start 07/11/17 at 09:00 Sertraline HCl (Zoloft) 25 mg DAILY PO Last administered on 07/14/17 08:39; Start 07/13/17 at 09:00; Stop 07/15/17 at 09:00; Status DC Sertraline HCl (Zoloft) 50 mg DAILY PO Last administered on 07/22/17 08:10; Start 07/15/17 at 09:00 Trazodone HCl (Desyrel) 12.5 mg TID PO Last administered on 07/22/17 19:17; Start 07/17/17 at 21:00 Divalproex Sodium (Depakote Sprinkles) 125 mg BID92 PO Last administered on 13:47; Start 07/18/17 at 14:00 Olanzapine (ZyPREXA ZYDIS) 1.25 mg PRN Q2HR PRN PO ANXIETY / AGITATION Last administered on 07/20/17 11:19; Start 07/18/17 at 11:15 Vitamin D (Vitamin D3) 50,000 unit WEEKLY PO Last administered on 07/20/17 11 :00; Start 07/20/17 at 11:00 Buspirone HCl (Buspar) 5 mg QID PO Last administered on 07/22/17 19:17; Start 07/20/17 at 21:00 Active Scripts Active Reported Tylenol (Acetaminophen) 325 Mg Tablet 650 Mg PO TID Trazodone Hcl 50 Mg Tablet 25 Mg PO TID Ultram (Tramadol HCl) 50 Mg Tablet 50 Mg PO PRN Q6HRS PRN Ondansetron Hcl 4 Mg Tablet 4 Mg PO Mucinex (Guaifenesin) 1,200 Mg Tbmp.12hr 1,200 Mg PO DAILY Miralax (Polyethylene Glycol 3350) 17 Gm Powd.pack 17 Gm PO DAILY Milk Of Magnesia (Magnesium Hydroxide) 400 Mg/5 Ml Oral.susp 2,400 Mg PO PRN DAILY PRN Namenda (Memantine Hcl) 10 Mg Tablet 10 Mg PO BID Melatonin 3 Mg Tablet 3 Mg PO QHS Gabapentin 100 Mg Capsule 100 Mg PO HS Colace (Docusate Sodium) 100 Mg Capsule 100 Mg PO DAILY Buspirone Hcl 5 Mg Tablet 5 Mg PO BID Bisacodyl 10 Mg Supp.rect 10 Mg RC PRN DAILY PRN Aspirin Ec (Aspirin) 81 Mg Tablet.dr 81 Mg PO DAILY PRN Amlodipine Besylate 5 Mg Tablet 5 Mg PO DAILY Diagnosis: Problems: (1) Depression (2) Anxiety disorder (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
--- NOTE | 2017-07-22 22:41 | PN ---
DATE: 07/21/2017 PSYCHIATRIC PROGRESS NOTE This is a late entry for 07/21/2017, covers elements not covered in my initial note of 07/21/2017. SUBJECTIVE: I met with the patient the evening of 07/21/2017. The patient's yelling has been better during the day on 07/21/2017. Her and daughter visited her. She did not quite remember that as I processed this with her. Nini, the nurse called her here and she was nicely dressed and groomed for the family visit. REVIEW OF SYSTEMS: Ambulation impaired, in a wheelchair. No CV, , pulmonary, eye, ENT system symptoms on review. Reliability poor. MENTAL STATUS EXAM: Oriented to herself. Insight, judgment, recent and remote memory, attention, concentration, fund of knowledge poor, consistent with her diagnosis as mentioned in my initial note. LABORATORY DATA: Reviewed. PLAN: Continue current psychotropics. Labs and valproic acid level drawn on 07/21/2017, may consider increasing Depakote, but for now despite her therapeutic level clinically, she is doing better. Now, we will not increase. Reviewed drug interactions. Risk/benefit ratio favors no further change for now. KANWAL ZULETA MD DR: SCOTT/giuseppe JOB#: [id number] / [id number]
[2017-07-23 06:17] VITALS: BP 145/75
[2017-07-23] MEDS: MEMANTINE 10 MG TABLET. PO SCH ×2 (08:47→19:41)
[2017-07-23] MEDS: ACETAMINOPHEN 325 MG TABLET PO SCH ×3 (08:48→19:41)
[2017-07-23] MEDS: busPIRone 5 MG TABLET. PO SCH ×4 (08:48→19:41)
[2017-07-23] MEDS: amLODIPine BESYLATE 5 MG TABLET PO SCH (08:48)
[2017-07-23] MEDS: DIVALPROEX 125 MG CAP.SPRINK PO SCH ×3 (08:48→19:43)
[2017-07-23] MEDS: ASPIRIN ENTERIC COATED 81 MG TABLET.DR. PO SCH (08:48)
[2017-07-23] MEDS: traZODone 50 MG TABLET. PO SCH ×3 (08:49→19:41)
[2017-07-23] MEDS: DOCUSATE SODIUM 100 MG CAPSULE PO SCH (08:49)
[2017-07-23] MEDS: POLYETHYLENE GLYCOL 3350 17 GM PACKET. PO SCH (08:49)
[2017-07-23] MEDS: SERTRALINE 50 MG TABLET. PO SCH (08:49)
[2017-07-23 16:05] VITALS: BP 132/67
[2017-07-23] MEDS: GABAPENTIN 100 MG CAPSULE. PO SCH (19:41)
[2017-07-23] MEDS: MELATONIN 3 MG TABLET PO SCH (19:41)
--- NOTE | 2017-07-23 20:23 | PDOC ---
Exam Mu Demential Exam: Mu Note: Please also refer to the separate dictated note~for this date of service dictated separately.~Patient seen individually. Discussed the patient with Nursing staff reviewed the chart.~Reviewed interim history and current functioning. Reviewed vital signs,~Labs/ Radiology~and current medications noted below. Continue current treatment with the changes noted in the dictated addendum note Assessment: Vital Signs: Vital Signs Date Time Temp Pulse Resp B/P (MAP) Pulse Ox O2 Delivery O2 Flow Rate FiO2 07/23/17 16:05 98.8 72 20 132/67 (88) 94 07/22/17 16:13 Room Air I&O Intake and Output 07/24/17 07:00 Intake Total 720 ml Balance 720 ml Intake Oral 720 ml Current Medications: Meds: Current Medications Acetaminophen (Tylenol) 650 mg PRN Q6HRS PRN PO PAIN / TEMP; Start 07/10/17 at 23:15 Multi-Ingredient Ointment (Analgesic [place]) 1 madan PRN QID PRN TP MUSCLE PAIN; Start 07/10/17 at 23:15 Al Hydroxide/Mg Hydroxide (Mylanta Plus Xs) 15 ml PRN AFTMEALHC PRN PO DYSPEPSIA; Start 07/10/17 at 23:15 Magnesium Hydroxide (Milk Of Magnesia) 2,400 mg PRN QHS PRN PO CONSTIPATION; Start 07/10/17 at 23:15 Buspirone HCl (Buspar) 5 mg BID PO Last administered on 07/20/17 08:09; Start 07/11/17 at 09:00; Stop 07/20/17 at 18:53; Status DC Memantine (Namenda) 10 mg BID PO Last administered on 07/23/17 19:41; Start 07/11/17 at 09:00 Trazodone HCl (Desyrel) 25 mg TID PO Last administered on 07/17/17 14:09; Start 07/11/17 at 09:00; Stop 07/17/17 at 18:51; Status DC Melatonin 3 mg QHS PO Last administered on 07/23/17 19:41; Start 07/11/17 at 21:00 Acetaminophen (Tylenol) 650 mg TID PO Last administered on 07/23/17 19:41; Start 07/11/17 at 09:00 Amlodipine Besylate (Norvasc) 5 mg DAILY PO Last administered on 07/23/17 08: 48; Start 07/11/17 at 09:00 Aspirin (Aspirin Enteric Coated) 81 mg DAILY PO Last administered on 08:48; Start 07/11/17 at 09:00 Bisacodyl (Dulcolax Supp) 10 mg PRN DAILY PRN RC CONSTIPATION; Start 07/11/17 at 07:30 Docusate Sodium (Colace) 100 mg DAILY PO Last administered on 07/23/17 08:49 ; Start 07/11/17 at 09:00 Gabapentin (Neurontin) 100 mg HS PO Last administered on 07/23/17 19:41; Start 07/11/17 at 21:00 Magnesium Hydroxide (Milk Of Magnesia) 1,200 mg PRN DAILY PRN PO CONSTIPATION; Start 07/11/17 at 07:30 Polyethylene Glycol (miraLAX) 17 gm DAILY PO Last administered on 07/23/17 08 :49; Start 07/11/17 at 09:00 Tramadol HCl (Ultram) 50 mg PRN Q6HRS PRN PO PAIN Last administered on 22:48; Start 07/11/17 at 07:30 Guaifenesin (Mucinex Er) 1,200 mg DAILY PO Last administered on 07/23/17 08: 48; Start 07/11/17 at 09:00 Sertraline HCl (Zoloft) 25 mg DAILY PO Last administered on 07/14/17 08:39; Start 07/13/17 at 09:00; Stop 07/15/17 at 09:00; Status DC Sertraline HCl (Zoloft) 50 mg DAILY PO Last administered on 07/23/17 08:49; Start 07/15/17 at 09:00 Trazodone HCl (Desyrel) 12.5 mg TID PO Last administered on 07/23/17 19:41; Start 07/17/17 at 21:00 Divalproex Sodium (Depakote Sprinkles) 125 mg BID92 PO Last administered on 13:42; Start 07/18/17 at 14:00; Stop 07/23/17 at 18:32; Status DC Olanzapine (ZyPREXA ZYDIS) 1.25 mg PRN Q2HR PRN PO ANXIETY / AGITATION Last administered on 07/23/17 13:44; Start 07/18/17 at 11:15 Vitamin D (Vitamin D3) 50,000 unit WEEKLY PO Last administered on 07/20/17 11 :00; Start 07/20/17 at 11:00 Buspirone HCl (Buspar) 5 mg QID PO Last administered on 07/23/17 19:41; Start 07/20/17 at 21:00 Divalproex Sodium (Depakote Sprinkles) 125 mg TID PO Last administered on 07/23 19:43; Start 07/23/17 at 21:00 Active Scripts Active Reported Tylenol (Acetaminophen) 325 Mg Tablet 650 Mg PO TID Trazodone Hcl 50 Mg Tablet 25 Mg PO TID Ultram (Tramadol HCl) 50 Mg Tablet 50 Mg PO PRN Q6HRS PRN Ondansetron Hcl 4 Mg Tablet 4 Mg PO Mucinex (Guaifenesin) 1,200 Mg Tbmp.12hr 1,200 Mg PO DAILY Miralax (Polyethylene Glycol 3350) 17 Gm Powd.pack 17 Gm PO DAILY Milk Of Magnesia (Magnesium Hydroxide) 400 Mg/5 Ml Oral.susp 2,400 Mg PO PRN DAILY PRN Namenda (Memantine Hcl) 10 Mg Tablet 10 Mg PO BID Melatonin 3 Mg Tablet 3 Mg PO QHS Gabapentin 100 Mg Capsule 100 Mg PO HS Colace (Docusate Sodium) 100 Mg Capsule 100 Mg PO DAILY Buspirone Hcl 5 Mg Tablet 5 Mg PO BID Bisacodyl 10 Mg Supp.rect 10 Mg RC PRN DAILY PRN Aspirin Ec (Aspirin) 81 Mg Tablet.dr 81 Mg PO DAILY PRN Amlodipine Besylate 5 Mg Tablet 5 Mg PO DAILY Diagnosis: Problems: (1) Depression (2) Anxiety disorder (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
--- NOTE | 2017-07-24 03:09 | PN ---
DATE: 07/22/2017 PSYCHIATRIC PROGRESS NOTE This late entry 07/22/2017 covers elements not covered in my initial note of 07/22/2017. SUBJECTIVE: Overall, per nursing report, the patient has been doing better, certainly very confused, but less yelling and less repetitive. REVIEW OF SYSTEMS: Ambulation impaired, in wheelchair. No CV, , pulmonary, eye, ENT system symptoms on review. MENTAL STATUS EXAM: Oriented to herself, pleasant, verbal. Insight, judgment, recent and remote memory, attention, concentration, fund of knowledge poor, consistent with her diagnoses mentioned in my initial note. PLAN: Continue current psychotropics. Review drug interactions, risk/benefit ratio favors no further change. KANWAL ZULETA MD DR: SCOTT/giuseppe JOB#: [id number] / [id number]
[2017-07-24 05:59] VITALS: BP 131/81
[2017-07-24] MEDS: DIVALPROEX 125 MG CAP.SPRINK PO SCH ×3 (10:41→19:19)
[2017-07-24] MEDS: ASPIRIN ENTERIC COATED 81 MG TABLET.DR. PO SCH (10:41)
[2017-07-24] MEDS: MEMANTINE 10 MG TABLET. PO SCH ×2 (10:41→19:19)
[2017-07-24] MEDS: DOCUSATE SODIUM 100 MG CAPSULE PO SCH (10:42)
[2017-07-24] MEDS: amLODIPine BESYLATE 5 MG TABLET PO SCH (10:42)
[2017-07-24] MEDS: busPIRone 5 MG TABLET. PO SCH ×4 (10:42→19:19)
[2017-07-24] MEDS: SERTRALINE 50 MG TABLET. PO SCH (10:42)
[2017-07-24] MEDS: traZODone 50 MG TABLET. PO SCH ×3 (10:43→19:19)
[2017-07-24] MEDS: POLYETHYLENE GLYCOL 3350 17 GM PACKET. PO SCH (10:43)
[2017-07-24] MEDS: ACETAMINOPHEN 325 MG TABLET PO SCH ×3 (10:44→19:19)
[2017-07-24 16:18] VITALS: BP 132/79
[2017-07-24] MEDS: GABAPENTIN 100 MG CAPSULE. PO SCH (19:19)
[2017-07-24] MEDS: MELATONIN 3 MG TABLET PO SCH (19:19)
--- NOTE | 2017-07-25 02:09 | PN ---
DATE: 07/23/2017 This late entry 07/23/2017 covers elements not covered in my initial note of 07/23/2017. Met with the patient evening of 07/23/2017. The patient slept 5 hours previous evening. She continues to be somewhat labile repeatedly yelling out help, help, help, when nothing specific as needed by her. However, this is better than before. REVIEW OF SYSTEMS: Ambulation impaired, in a wheelchair. No CV, , pulmonary, eye, ENT system symptoms on review. Reliability poor. MENTAL STATUS EXAM: Oriented to herself. Insight, judgment, recent and remote memory, attention, concentration, fund of knowledge poor consistent with her diagnosis mentioned in my initial note. LABORATORY DATA: Reviewed. IMPRESSION: Major neurocognitive disorder, Alzheimer, vascular with depression, delusion and behavioral disturbance; anxiety disorder, unspecified; impulse control disorder, unspecified. Rest unchanged. PLAN: Increase Depakote Sprinkles from 125 b.i.d. to 125 t.i.d. since the level at the current dosage is subtherapeutic at 28 and the patient remains symptomatic with mood lability. Maintain the rest of psychotropics mentioned in my initial note. Reviewed drug interactions. Risk/benefit ratio favors no further change. KANWAL ZULETA MD DR: SCOTT/giuseppe JOB#: [id number] / [id number]
[2017-07-25] MEDS ORDERED: ASPI-612 PO (02:54)
[2017-07-25] MEDS ORDERED: CHOL500016 PO (02:55)
[2017-07-25] MEDS ORDERED: DIVA125C PO (02:58)
[2017-07-25] MEDS ORDERED: OLAN5TAB5 PO (03:00)
[2017-07-25] MEDS ORDERED: FLUV50TA2 PO (03:01)
[2017-07-25 06:34] VITALS: BP 131/75
[2017-07-25] MEDS: POLYETHYLENE GLYCOL 3350 17 GM PACKET. PO SCH (07:07)
[2017-07-25] MEDS: ACETAMINOPHEN 325 MG TABLET PO SCH ×3 (07:07→19:37)
[2017-07-25] MEDS: DOCUSATE SODIUM 100 MG CAPSULE PO SCH (07:07)
[2017-07-25] MEDS: MEMANTINE 10 MG TABLET. PO SCH ×2 (07:07→19:37)
[2017-07-25] MEDS: busPIRone 5 MG TABLET. PO SCH ×4 (07:07→19:36)
[2017-07-25] MEDS: amLODIPine BESYLATE 5 MG TABLET PO SCH (07:08)
[2017-07-25] MEDS: traZODone 50 MG TABLET. PO SCH ×3 (07:08→19:36)
[2017-07-25] MEDS: DIVALPROEX 125 MG CAP.SPRINK PO SCH ×3 (07:09→19:36)
[2017-07-25] MEDS: ASPIRIN ENTERIC COATED 81 MG TABLET.DR. PO SCH (07:09)
[2017-07-25 16:20] VITALS: BP 104/61
[2017-07-25] MEDS: MELATONIN 3 MG TABLET PO SCH (19:36)
[2017-07-25] MEDS: GABAPENTIN 100 MG CAPSULE. PO SCH (19:37)
--- NOTE | 2017-07-25 20:56 | PDOC ---
Exam Mu Demential Exam: Mu Note: Please also refer to the separate dictated note~for this date of service dictated separately.~Patient seen individually. Discussed the patient with Nursing staff reviewed the chart.~Reviewed interim history and current functioning. Reviewed vital signs,~Labs/ Radiology~and current medications noted below. Continue current treatment with the changes noted in the dictated addendum note Assessment: Vital Signs: Vital Signs Date Time Temp Pulse Resp B/P (MAP) Pulse Ox O2 Delivery O2 Flow Rate FiO2 07/25/17 16:20 97.1 71 16 104/61 (75) 95 07/22/17 16:13 Room Air I&O Intake and Output 07/26/17 07:00 Intake Total 780 ml Balance 780 ml Intake Oral 780 ml Current Medications: Meds: Current Medications Acetaminophen (Tylenol) 650 mg PRN Q6HRS PRN PO PAIN / TEMP; Start 07/10/17 at 23:15 Multi-Ingredient Ointment (Analgesic [place]) 1 madan PRN QID PRN TP MUSCLE PAIN; Start 07/10/17 at 23:15 Al Hydroxide/Mg Hydroxide (Mylanta Plus Xs) 15 ml PRN AFTMEALHC PRN PO DYSPEPSIA; Start 07/10/17 at 23:15 Magnesium Hydroxide (Milk Of Magnesia) 2,400 mg PRN QHS PRN PO CONSTIPATION; Start 07/10/17 at 23:15 Buspirone HCl (Buspar) 5 mg BID PO Last administered on 07/20/17 08:09; Start 07/11/17 at 09:00; Stop 07/20/17 at 18:53; Status DC Memantine (Namenda) 10 mg BID PO Last administered on 07/25/17 19:37; Start 07/11/17 at 09:00 Trazodone HCl (Desyrel) 25 mg TID PO Last administered on 07/17/17 14:09; Start 07/11/17 at 09:00; Stop 07/17/17 at 18:51; Status DC Melatonin 3 mg QHS PO Last administered on 07/25/17 19:36; Start 07/11/17 at 21:00 Acetaminophen (Tylenol) 650 mg TID PO Last administered on 07/25/17 19:37; Start 07/11/17 at 09:00 Amlodipine Besylate (Norvasc) 5 mg DAILY PO Last administered on 07/25/17 07: 08; Start 07/11/17 at 09:00 Aspirin (Aspirin Enteric Coated) 81 mg DAILY PO Last administered on 07:09; Start 07/11/17 at 09:00 Bisacodyl (Dulcolax Supp) 10 mg PRN DAILY PRN RC CONSTIPATION; Start 07/11/17 at 07:30 Docusate Sodium (Colace) 100 mg DAILY PO Last administered on 07/25/17 07:07 ; Start 07/11/17 at 09:00 Gabapentin (Neurontin) 100 mg HS PO Last administered on 07/25/17 19:37; Start 07/11/17 at 21:00 Magnesium Hydroxide (Milk Of Magnesia) 1,200 mg PRN DAILY PRN PO CONSTIPATION; Start 07/11/17 at 07:30 Polyethylene Glycol (miraLAX) 17 gm DAILY PO Last administered on 07/25/17 07 :07; Start 07/11/17 at 09:00 Tramadol HCl (Ultram) 50 mg PRN Q6HRS PRN PO PAIN Last administered on 22:48; Start 07/11/17 at 07:30 Guaifenesin (Mucinex Er) 1,200 mg DAILY PO Last administered on 07/25/17 07: 09; Start 07/11/17 at 09:00 Sertraline HCl (Zoloft) 25 mg DAILY PO Last administered on 07/14/17 08:39; Start 07/13/17 at 09:00; Stop 07/15/17 at 09:00; Status DC Sertraline HCl (Zoloft) 50 mg DAILY PO Last administered on 07/24/17 10:42; Start 07/15/17 at 09:00; Stop 07/24/17 at 18:33; Status DC Trazodone HCl (Desyrel) 12.5 mg TID PO Last administered on 07/25/17 19:36; Start 07/17/17 at 21:00 Divalproex Sodium (Depakote Sprinkles) 125 mg BID92 PO Last administered on 13:42; Start 07/18/17 at 14:00; Stop 07/23/17 at 18:32; Status DC Olanzapine (ZyPREXA ZYDIS) 1.25 mg PRN Q2HR PRN PO ANXIETY / AGITATION Last administered on 07/23/17 13:44; Start 07/18/17 at 11:15 Vitamin D (Vitamin D3) 50,000 unit WEEKLY PO Last administered on 07/20/17 11 :00; Start 07/20/17 at 11:00 Buspirone HCl (Buspar) 5 mg QID PO Last administered on 07/25/17 19:36; Start 07/20/17 at 21:00 Divalproex Sodium (Depakote Sprinkles) 125 mg TID PO Last administered on 07/25 19:36; Start 07/23/17 at 21:00 Fluvoxamine Maleate (Luvox) 25 mg HS PO Last administered on 07/25/17 19:37; Start 07/24/17 at 21:00; Stop 07/26/17 at 21:00 Fluvoxamine Maleate (Luvox) 50 mg HS PO ; Start 07/27/17 at 21:00 Active Scripts Active Reported Fluvoxamine Maleate 50 Mg Tablet 25 Mg PO HS Zyprexa Zydis (Olanzapine) 5 Mg Tab.rapdis 1.25 Mg PO PRN Q2HR PRN Depakote Sprinkle (Divalproex Sodium) 125 Mg Cap.sprink 125 Mg PO TID Vitamin D3 (Cholecalciferol (Vitamin D3)) 5,000 Unit Tablet 50,000 Unit PO WEEKLY Aspirin Ec (Aspirin) 81 Mg Tablet.dr 81 Mg PO DAILY Tylenol (Acetaminophen) 325 Mg Tablet 650 Mg PO TID Trazodone Hcl 50 Mg Tablet 25 Mg PO TID Ultram (Tramadol HCl) 50 Mg Tablet 50 Mg PO PRN Q6HRS PRN Ondansetron Hcl 4 Mg Tablet 4 Mg PO Mucinex (Guaifenesin) 1,200 Mg Tbmp.12hr 1,200 Mg PO DAILY Miralax (Polyethylene Glycol 3350) 17 Gm Powd.pack 17 Gm PO DAILY Milk Of Magnesia (Magnesium Hydroxide) 400 Mg/5 Ml Oral.susp 2,400 Mg PO PRN DAILY PRN Namenda (Memantine Hcl) 10 Mg Tablet 10 Mg PO BID Melatonin 3 Mg Tablet 3 Mg PO QHS Gabapentin 100 Mg Capsule 100 Mg PO HS Colace (Docusate Sodium) 100 Mg Capsule 100 Mg PO DAILY Buspirone Hcl 5 Mg Tablet 5 Mg PO BID Bisacodyl 10 Mg Supp.rect 10 Mg RC PRN DAILY PRN Aspirin Ec (Aspirin) 81 Mg Tablet.dr 81 Mg PO DAILY PRN Amlodipine Besylate 5 Mg Tablet 5 Mg PO DAILY Diagnosis: Problems: (1) Depression (2) Anxiety disorder (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
--- NOTE | 2017-07-26 04:42 | PN ---
DATE: 07/24/2017 PSYCHIATRIC PROGRESS NOTE This late entry 07/24/2017 covers elements not covered in my initial note of 07/24/2017. SUBJECTIVE: I met with the patient in the evening of 07/24/2017. The patient is compliant with her medications, yells at times, hates to be alone, does better someone sitting with her, somewhat obsessive. REVIEW OF SYSTEMS: Ambulation impaired, in a wheelchair. No CV, , pulmonary, eye, ENT system symptoms on review. Reliability poor. MENTAL STATUS EXAM: Oriented to herself. Insight, judgment, recent and remote memory, attention, concentration, fund of knowledge poor, consistent with her diagnosis. LABORATORIES: Reviewed. IMPRESSION: Unchanged from my initial note. PLAN: Change Zoloft to Luvox 25 mg at bedtime 2 days and 50 mg at bedtime, reviewed the rest of the psychotropics and drug interactions, risk/benefit ratio favors no further change. KANWAL ZULETA MD DR: SCOTT/giuseppe JOB#: [id number] / [id number]
[2017-07-26 05:52] VITALS: BP 133/78
[2017-07-26] MEDS: busPIRone 5 MG TABLET. PO SCH ×4 (07:13→19:39)
[2017-07-26] MEDS: DOCUSATE SODIUM 100 MG CAPSULE PO SCH (07:14)
[2017-07-26] MEDS: MEMANTINE 10 MG TABLET. PO SCH ×2 (07:14→19:39)
[2017-07-26] MEDS: ACETAMINOPHEN 325 MG TABLET PO SCH ×3 (07:14→19:36)
[2017-07-26] MEDS: ASPIRIN ENTERIC COATED 81 MG TABLET.DR. PO SCH (07:14)
[2017-07-26] MEDS: amLODIPine BESYLATE 5 MG TABLET PO SCH (07:14)
[2017-07-26] MEDS: DIVALPROEX 125 MG CAP.SPRINK PO SCH ×3 (07:14→19:37)
[2017-07-26] MEDS: traZODone 50 MG TABLET. PO SCH ×3 (07:15→19:37)
[2017-07-26] MEDS: POLYETHYLENE GLYCOL 3350 17 GM PACKET. PO SCH (07:15)
[2017-07-26 07:40] LABS: BASO # 0.2 x10^3/uL (0.0-0.2); BASO % 1 % (0-3); EOS # 0.4 x10^3/uL (0.0-0.7); EOS % 3 % (0-3); HEMATOCRIT 40.7 % (36.0-47.0); HEMOGLOBIN 13.9 g/dL (12.0-15.5); LYMPH # 1.2 x10^3/uL (1.0-4.8); LYMPH % 11 % (24-48); MEAN CORPUSCULAR HEMOGLOBIN 33 pg (25-35); MEAN CORPUSCULAR HGB CONC 34 g/dL (31-37); MEAN CORPUSCULAR VOLUME 96 fL (79-100); MONO # 0.8 x10^3/uL (0.0-1.1); MONO % 7 % (0-9); NEUT # 8.7 x10^3uL (1.8-7.7); NEUT % 77 % (31-73); PLATELET COUNT 634 x10^3/uL (140-400); RED BLOOD COUNT 4.23 x10^6/uL (3.50-5.40); RED CELL DISTRIBUTION WIDTH 16.6 % (11.5-14.5); WHITE BLOOD COUNT 11.3 x10^3/uL (4.0-11.0)
[2017-07-26 07:53] LABS: ALBUMIN 3.2 g/dL (3.4-5.0); ALBUMIN/GLOBULIN RATIO 0.8 (1.0-1.7); ALK PHOS 113 U/L (46-116); ALT (SGPT) 18 U/L (14-59); ANION GAP 5 (6-14); AST (SGOT) 14 U/L (15-37); BLOOD UREA NITROGEN 9 mg/dL (7-20); BUN/CREATININE RATIO 18 (6-20); CALCIUM 9.4 mg/dL (8.5-10.1); CARBON DIOXIDE 32 mmol/L (21-32); CHLORIDE 103 mmol/L (98-107); CREATININE 0.5 mg/dL (0.6-1.0); GFR 119.3; GLUCOSE 104 mg/dL (70-99); POTASSIUM 4.1 mmol/L (3.5-5.1); SODIUM 140 mmol/L (136-145); TOTAL BILIRUBIN 0.4 mg/dL (0.2-1.0)
[2017-07-26 07:55] LABS: VAL ACID 39 mcg/mL (50-100)
[2017-07-26 16:33] VITALS: BP 126/74
[2017-07-26] MEDS: GABAPENTIN 100 MG CAPSULE. PO SCH (19:36)
[2017-07-26] MEDS: MELATONIN 3 MG TABLET PO SCH (19:39)
--- NOTE | 2017-07-26 20:54 | PDOC ---
Exam Mu Demential Exam: Mu Note: Please also refer to the separate dictated note~for this date of service dictated separately.~Patient seen individually. Discussed the patient with Nursing staff reviewed the chart.~Reviewed interim history and current functioning. Reviewed vital signs,~Labs/ Radiology~and current medications noted below. Continue current treatment with the changes noted in the dictated addendum note Assessment: Vital Signs: Vital Signs Date Time Temp Pulse Resp B/P (MAP) Pulse Ox O2 Delivery O2 Flow Rate FiO2 07/26/17 16:33 97.2 70 20 126/74 (91) 96 07/22/17 16:13 Room Air I&O Intake and Output 07/27/17 07:00 Intake Total 720 ml Balance 720 ml Intake Oral 720 ml # Voids 1 Labs: Laboratory Tests Test 07/26/17 07:29 White Blood Count 11.3 x10^3/uL (4.0-11.0) H Red Blood Count 4.23 x10^6/uL (3.50-5.40) Hemoglobin 13.9 g/dL (12.0-15.5) Hematocrit 40.7 % (36.0-47.0) Mean Corpuscular Volume 96 fL (79-100) Mean Corpuscular Hemoglobin 33 pg (25-35) Mean Corpuscular Hemoglobin Concent 34 g/dL (31-37) Red Cell Distribution Width 16.6 % (11.5-14.5) H Platelet Count 634 x10^3/uL (140-400) H Neutrophils (%) (Auto) 77 % (31-73) H Lymphocytes (%) (Auto) 11 % (24-48) L Monocytes (%) (Auto) 7 % (0-9) Eosinophils (%) (Auto) 3 % (0-3) Basophils (%) (Auto) 1 % (0-3) Neutrophils # (Auto) 8.7 x10^3uL (1.8-7.7) H Lymphocytes # (Auto) 1.2 x10^3/uL (1.0-4.8) Monocytes # (Auto) 0.8 x10^3/uL (0.0-1.1) Eosinophils # (Auto) 0.4 x10^3/uL (0.0-0.7) Basophils # (Auto) 0.2 x10^3/uL (0.0-0.2) Sodium Level 140 mmol/L (136-145) Potassium Level 4.1 mmol/L (3.5-5.1) Chloride Level 103 mmol/L (98-107) Carbon Dioxide Level 32 mmol/L (21-32) Anion Gap 5 (6-14) L Blood Urea Nitrogen 9 mg/dL (7-20) Creatinine 0.5 mg/dL (0.6-1.0) L Estimated GFR (Cockcroft-Gault) 119.3 BUN/Creatinine Ratio 18 (6-20) Glucose Level 104 mg/dL (70-99) H Calcium Level 9.4 mg/dL (8.5-10.1) Total Bilirubin 0.4 mg/dL (0.2-1.0) Aspartate Amino Transferase (AST) 14 U/L (15-37) L Alanine Aminotransferase (ALT) 18 U/L (14-59) Alkaline Phosphatase 113 U/L (46-116) Total Protein 7.0 g/dL (6.4-8.2) Albumin 3.2 g/dL (3.4-5.0) L Albumin/Globulin Ratio 0.8 (1.0-1.7) L Valproic Acid Level 39 mcg/mL (50-100) L Valproic Acid Last Dose Date 07/25/17 Valproic Acid Last Dose Time 2100 Current Medications: Meds: Current Medications Acetaminophen (Tylenol) 650 mg PRN Q6HRS PRN PO PAIN / TEMP; Start 07/10/17 at 23:15 Multi-Ingredient Ointment (Analgesic [place]) 1 madan PRN QID PRN TP MUSCLE PAIN; Start 07/10/17 at 23:15 Al Hydroxide/Mg Hydroxide (Mylanta Plus Xs) 15 ml PRN AFTMEALHC PRN PO DYSPEPSIA; Start 07/10/17 at 23:15 Magnesium Hydroxide (Milk Of Magnesia) 2,400 mg PRN QHS PRN PO CONSTIPATION; Start 07/10/17 at 23:15 Buspirone HCl (Buspar) 5 mg BID PO Last administered on 07/20/17 08:09; Start 07/11/17 at 09:00; Stop 07/20/17 at 18:53; Status DC Memantine (Namenda) 10 mg BID PO Last administered on 07/26/17 19:39; Start 07/11/17 at 09:00 Trazodone HCl (Desyrel) 25 mg TID PO Last administered on 07/17/17 14:09; Start 07/11/17 at 09:00; Stop 07/17/17 at 18:51; Status DC Melatonin 3 mg QHS PO Last administered on 07/26/17 19:39; Start 07/11/17 at 21:00 Acetaminophen (Tylenol) 650 mg TID PO Last administered on 07/26/17 19:36; Start 07/11/17 at 09:00 Amlodipine Besylate (Norvasc) 5 mg DAILY PO Last administered on 07/26/17 07: 14; Start 07/11/17 at 09:00 Aspirin (Aspirin Enteric Coated) 81 mg DAILY PO Last administered on 07:14; Start 07/11/17 at 09:00 Bisacodyl (Dulcolax Supp) 10 mg PRN DAILY PRN RC CONSTIPATION; Start 07/11/17 at 07:30 Docusate Sodium (Colace) 100 mg DAILY PO Last administered on 07/26/17 07:14 ; Start 07/11/17 at 09:00 Gabapentin (Neurontin) 100 mg HS PO Last administered on 07/26/17 19:36; Start 07/11/17 at 21:00 Magnesium Hydroxide (Milk Of Magnesia) 1,200 mg PRN DAILY PRN PO CONSTIPATION; Start 07/11/17 at 07:30 Polyethylene Glycol (miraLAX) 17 gm DAILY PO Last administered on 07/26/17 07 :15; Start 07/11/17 at 09:00 Tramadol HCl (Ultram) 50 mg PRN Q6HRS PRN PO PAIN Last administered on 22:48; Start 07/11/17 at 07:30 Guaifenesin (Mucinex Er) 1,200 mg DAILY PO Last administered on 07/26/17 07: 15; Start 07/11/17 at 09:00 Sertraline HCl (Zoloft) 25 mg DAILY PO Last administered on 07/14/17 08:39; Start 07/13/17 at 09:00; Stop 07/15/17 at 09:00; Status DC Sertraline HCl (Zoloft) 50 mg DAILY PO Last administered on 07/24/17 10:42; Start 07/15/17 at 09:00; Stop 07/24/17 at 18:33; Status DC Trazodone HCl (Desyrel) 12.5 mg TID PO Last administered on 07/26/17 19:37; Start 07/17/17 at 21:00 Divalproex Sodium (Depakote Sprinkles) 125 mg BID92 PO Last administered on 13:42; Start 07/18/17 at 14:00; Stop 07/23/17 at 18:32; Status DC Olanzapine (ZyPREXA ZYDIS) 1.25 mg PRN Q2HR PRN PO ANXIETY / AGITATION Last administered on 07/23/17 13:44; Start 07/18/17 at 11:15 Vitamin D (Vitamin D3) 50,000 unit WEEKLY PO Last administered on 07/20/17 11 :00; Start 07/20/17 at 11:00 Buspirone HCl (Buspar) 5 mg QID PO Last administered on 07/26/17 19:39; Start 07/20/17 at 21:00 Divalproex Sodium (Depakote Sprinkles) 125 mg TID PO Last administered on 07/26 19:37; Start 07/23/17 at 21:00 Fluvoxamine Maleate (Luvox) 25 mg HS PO Last administered on 07/26/17 19:37; Start 07/24/17 at 21:00; Stop 07/26/17 at 21:00 Fluvoxamine Maleate (Luvox) 50 mg HS PO ; Start 07/27/17 at 21:00 Active Scripts Active Reported Fluvoxamine Maleate 50 Mg Tablet 25 Mg PO HS Zyprexa Zydis (Olanzapine) 5 Mg Tab.rapdis 1.25 Mg PO PRN Q2HR PRN Depakote Sprinkle (Divalproex Sodium) 125 Mg Cap.sprink 125 Mg PO TID Vitamin D3 (Cholecalciferol (Vitamin D3)) 5,000 Unit Tablet 50,000 Unit PO WEEKLY Aspirin Ec (Aspirin) 81 Mg Tablet.dr 81 Mg PO DAILY Tylenol (Acetaminophen) 325 Mg Tablet 650 Mg PO TID Trazodone Hcl 50 Mg Tablet 25 Mg PO TID Ultram (Tramadol HCl) 50 Mg Tablet 50 Mg PO PRN Q6HRS PRN Ondansetron Hcl 4 Mg Tablet 4 Mg PO Mucinex (Guaifenesin) 1,200 Mg Tbmp.12hr 1,200 Mg PO DAILY Miralax (Polyethylene Glycol 3350) 17 Gm Powd.pack 17 Gm PO DAILY Milk Of Magnesia (Magnesium Hydroxide) 400 Mg/5 Ml Oral.susp 2,400 Mg PO PRN DAILY PRN Namenda (Memantine Hcl) 10 Mg Tablet 10 Mg PO BID Melatonin 3 Mg Tablet 3 Mg PO QHS Gabapentin 100 Mg Capsule 100 Mg PO HS Colace (Docusate Sodium) 100 Mg Capsule 100 Mg PO DAILY Buspirone Hcl 5 Mg Tablet 5 Mg PO BID Bisacodyl 10 Mg Supp.rect 10 Mg RC PRN DAILY PRN Aspirin Ec (Aspirin) 81 Mg Tablet.dr 81 Mg PO DAILY PRN Amlodipine Besylate 5 Mg Tablet 5 Mg PO DAILY Diagnosis: Problems: (1) Depression (2) Anxiety disorder (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
[2017-07-27 05:57] VITALS: BP 136/78
[2017-07-27] MEDS: busPIRone 5 MG TABLET. PO SCH ×4 (07:57→19:36)
[2017-07-27] MEDS: POLYETHYLENE GLYCOL 3350 17 GM PACKET. PO SCH (07:57)
[2017-07-27] MEDS: DIVALPROEX 125 MG CAP.SPRINK PO SCH ×3 (07:57→19:36)
[2017-07-27] MEDS: DOCUSATE SODIUM 100 MG CAPSULE PO SCH (07:57)
[2017-07-27] MEDS: MEMANTINE 10 MG TABLET. PO SCH ×2 (07:58→19:36)
[2017-07-27] MEDS: CHOLECALCIFEROL (VITAMIN D3) 50,000 UNIT CAPSULE PO SCH (07:59)
[2017-07-27] MEDS: ASPIRIN ENTERIC COATED 81 MG TABLET.DR. PO SCH (07:59)
[2017-07-27] MEDS: amLODIPine BESYLATE 5 MG TABLET PO SCH (07:59)
[2017-07-27] MEDS: ACETAMINOPHEN 325 MG TABLET PO SCH ×3 (07:59→19:36)
[2017-07-27] MEDS: traZODone 50 MG TABLET. PO SCH ×3 (08:01→19:36)
--- NOTE | 2017-07-27 15:21 | PN ---
DATE: 07/26/2017 This is a late entry for 07/26/2017 and covers elements not covered in my initial note of 07/26/2017. SUBJECTIVE: Overall, the patient remains somewhat anxious, repetitive, yelling out at times, "help, help" especially if she is alone. She is compliant with medications. REVIEW OF SYSTEMS: Ambulation impaired, in wheelchair. No CV, , pulmonary, eye, ENT system symptoms on review. Reliability poor. MENTAL STATUS EXAM: Oriented to herself. Insight, judgment, recent and remote memory, attention, concentration, fund of knowledge poor, consistent with her diagnoses as mentioned in my initial note. PLAN: Continue current psychotropics, reviewed drug interactions, risk/benefit ratio favors no further change for now, may need to increase the scheduled trazodone if agitation, anxiety resurfaces. MAN Dariel ZULETA MD DR: SCOTT/giuseppe JOB#: [id number] / [id number]
[2017-07-27 16:18] VITALS: BP 113/71
[2017-07-27] MEDS: MELATONIN 3 MG TABLET PO SCH (19:35)
[2017-07-27] MEDS: GABAPENTIN 100 MG CAPSULE. PO SCH (19:36)
--- NOTE | 2017-07-27 21:57 | PDOC ---
Exam Mu Demential Exam: Mu Note: Please also refer to the separate dictated note~for this date of service dictated separately.~Patient seen individually. Discussed the patient with Nursing staff reviewed the chart.~Reviewed interim history and current functioning. Reviewed vital signs,~Labs/ Radiology~and current medications noted below. Continue current treatment with the changes noted in the dictated addendum note Assessment: Vital Signs: Vital Signs Date Time Temp Pulse Resp B/P (MAP) Pulse Ox O2 Delivery O2 Flow Rate FiO2 07/27/17 16:18 97.6 69 18 113/71 (85) 93 07/27/17 05:57 Room Air I&O Intake and Output 07/28/17 07:00 Intake Total 480 ml Balance 480 ml Intake Oral 480 ml # Bowel Movements 1 Current Medications: Meds: Current Medications Acetaminophen (Tylenol) 650 mg PRN Q6HRS PRN PO PAIN / TEMP; Start 07/10/17 at 23:15 Multi-Ingredient Ointment (Analgesic [place]) 1 madan PRN QID PRN TP MUSCLE PAIN; Start 07/10/17 at 23:15 Al Hydroxide/Mg Hydroxide (Mylanta Plus Xs) 15 ml PRN AFTMEALHC PRN PO DYSPEPSIA; Start 07/10/17 at 23:15 Magnesium Hydroxide (Milk Of Magnesia) 2,400 mg PRN QHS PRN PO CONSTIPATION; Start 07/10/17 at 23:15 Buspirone HCl (Buspar) 5 mg BID PO Last administered on 07/20/17 08:09; Start 07/11/17 at 09:00; Stop 07/20/17 at 18:53; Status DC Memantine (Namenda) 10 mg BID PO Last administered on 07/27/17 19:36; Start 07/11/17 at 09:00 Trazodone HCl (Desyrel) 25 mg TID PO Last administered on 07/17/17 14:09; Start 07/11/17 at 09:00; Stop 07/17/17 at 18:51; Status DC Melatonin 3 mg QHS PO Last administered on 07/27/17 19:35; Start 07/11/17 at 21:00 Acetaminophen (Tylenol) 650 mg TID PO Last administered on 07/27/17 19:36; Start 07/11/17 at 09:00 Amlodipine Besylate (Norvasc) 5 mg DAILY PO Last administered on 07/27/17 07: 59; Start 07/11/17 at 09:00 Aspirin (Aspirin Enteric Coated) 81 mg DAILY PO Last administered on 07:59; Start 07/11/17 at 09:00 Bisacodyl (Dulcolax Supp) 10 mg PRN DAILY PRN RC CONSTIPATION; Start 07/11/17 at 07:30 Docusate Sodium (Colace) 100 mg DAILY PO Last administered on 07/27/17 07:57 ; Start 07/11/17 at 09:00 Gabapentin (Neurontin) 100 mg HS PO Last administered on 07/27/17 19:36; Start 07/11/17 at 21:00 Magnesium Hydroxide (Milk Of Magnesia) 1,200 mg PRN DAILY PRN PO CONSTIPATION; Start 07/11/17 at 07:30 Polyethylene Glycol (miraLAX) 17 gm DAILY PO Last administered on 07/27/17 07 :57; Start 07/11/17 at 09:00 Tramadol HCl (Ultram) 50 mg PRN Q6HRS PRN PO PAIN Last administered on 22:48; Start 07/11/17 at 07:30 Guaifenesin (Mucinex Er) 1,200 mg DAILY PO Last administered on 07/27/17 07: 58; Start 07/11/17 at 09:00 Sertraline HCl (Zoloft) 25 mg DAILY PO Last administered on 07/14/17 08:39; Start 07/13/17 at 09:00; Stop 07/15/17 at 09:00; Status DC Sertraline HCl (Zoloft) 50 mg DAILY PO Last administered on 07/24/17 10:42; Start 07/15/17 at 09:00; Stop 07/24/17 at 18:33; Status DC Trazodone HCl (Desyrel) 12.5 mg TID PO Last administered on 07/27/17 19:36; Start 07/17/17 at 21:00 Divalproex Sodium (Depakote Sprinkles) 125 mg BID92 PO Last administered on 13:42; Start 07/18/17 at 14:00; Stop 07/23/17 at 18:32; Status DC Olanzapine (ZyPREXA ZYDIS) 1.25 mg PRN Q2HR PRN PO ANXIETY / AGITATION Last administered on 07/23/17 13:44; Start 07/18/17 at 11:15 Vitamin D (Vitamin D3) 50,000 unit WEEKLY PO Last administered on 07/27/17 07 :59; Start 07/20/17 at 11:00 Buspirone HCl (Buspar) 5 mg QID PO Last administered on 07/27/17 19:36; Start 07/20/17 at 21:00 Divalproex Sodium (Depakote Sprinkles) 125 mg TID PO Last administered on 07/27 19:36; Start 07/23/17 at 21:00 Fluvoxamine Maleate (Luvox) 25 mg HS PO Last administered on 07/26/17 19:37; Start 07/24/17 at 21:00; Stop 07/26/17 at 21:00; Status DC Fluvoxamine Maleate (Luvox) 50 mg HS PO Last administered on 07/27/17 19:37; Start 07/27/17 at 21:00 Active Scripts Active Reported Fluvoxamine Maleate 50 Mg Tablet 25 Mg PO HS Zyprexa Zydis (Olanzapine) 5 Mg Tab.rapdis 1.25 Mg PO PRN Q2HR PRN Depakote Sprinkle (Divalproex Sodium) 125 Mg Cap.sprink 125 Mg PO TID Vitamin D3 (Cholecalciferol (Vitamin D3)) 5,000 Unit Tablet 50,000 Unit PO WEEKLY Aspirin Ec (Aspirin) 81 Mg Tablet.dr 81 Mg PO DAILY Tylenol (Acetaminophen) 325 Mg Tablet 650 Mg PO TID Trazodone Hcl 50 Mg Tablet 25 Mg PO TID Ultram (Tramadol HCl) 50 Mg Tablet 50 Mg PO PRN Q6HRS PRN Ondansetron Hcl 4 Mg Tablet 4 Mg PO Mucinex (Guaifenesin) 1,200 Mg Tbmp.12hr 1,200 Mg PO DAILY Miralax (Polyethylene Glycol 3350) 17 Gm Powd.pack 17 Gm PO DAILY Milk Of Magnesia (Magnesium Hydroxide) 400 Mg/5 Ml Oral.susp 2,400 Mg PO PRN DAILY PRN Namenda (Memantine Hcl) 10 Mg Tablet 10 Mg PO BID Melatonin 3 Mg Tablet 3 Mg PO QHS Gabapentin 100 Mg Capsule 100 Mg PO HS Colace (Docusate Sodium) 100 Mg Capsule 100 Mg PO DAILY Buspirone Hcl 5 Mg Tablet 5 Mg PO BID Bisacodyl 10 Mg Supp.rect 10 Mg RC PRN DAILY PRN Aspirin Ec (Aspirin) 81 Mg Tablet.dr 81 Mg PO DAILY PRN Amlodipine Besylate 5 Mg Tablet 5 Mg PO DAILY Diagnosis: Problems: (1) Depression (2) Anxiety disorder (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
[2017-07-28] MEDS: traMADol 50 MG TABLET PO PRN (03:28)
[2017-07-28 06:03] VITALS: BP 157/69
[2017-07-28] MEDS: MEMANTINE 10 MG TABLET. PO SCH ×2 (08:20→19:12)
[2017-07-28] MEDS: busPIRone 5 MG TABLET. PO SCH ×4 (08:20→19:12)
[2017-07-28] MEDS: DOCUSATE SODIUM 100 MG CAPSULE PO SCH (08:20)
[2017-07-28] MEDS: traZODone 50 MG TABLET. PO SCH ×3 (08:21→19:11)
[2017-07-28] MEDS: amLODIPine BESYLATE 5 MG TABLET PO SCH (08:22)
[2017-07-28] MEDS: ACETAMINOPHEN 325 MG TABLET PO SCH ×3 (08:22→19:11)
[2017-07-28] MEDS: POLYETHYLENE GLYCOL 3350 17 GM PACKET. PO SCH (08:22)
[2017-07-28] MEDS: DIVALPROEX 125 MG CAP.SPRINK PO SCH ×3 (08:22→19:12)
[2017-07-28] MEDS: ASPIRIN ENTERIC COATED 81 MG TABLET.DR. PO SCH (08:22)
--- NOTE | 2017-07-28 11:58 | PN ---
DATE: 07/27/2017 PSYCHIATRIC PROGRESS NOTE This note covers elements not covered in my initial note of 07/27/2017. I met with the patient on the morning of 07/27/2017. Overall, the patient continues to call out repeatedly. She calls out help, help ____ she needs. This is somewhat better than before, less obsessive. REVIEW OF SYSTEMS: No CV, , pulmonary, eye, ENT system symptoms on review. Reliability poor. MENTAL STATUS EXAM: Oriented to herself. Insight, judgment, recent and remote memory, attention, concentration, fund of knowledge poor. Consistent with her diagnosis mentioned in my initial note.. PLAN: Continue current psychotropics. Reviewed drug interactions. Risk/benefit ratio, there is no further change. KANWAL ZULETA MD DR: SCOTT/giuseppe JOB#: [id number] / [id number]
[2017-07-28 16:09] VITALS: BP 132/78
[2017-07-28] MEDS: MELATONIN 3 MG TABLET PO SCH (19:11)
[2017-07-28] MEDS: GABAPENTIN 100 MG CAPSULE. PO SCH (19:11)
[2017-07-29] MEDS ORDERED: ACET325T9 PO (01:46)
[2017-07-29] MEDS ORDERED: METH29OI TP (01:58)
[2017-07-29] MEDS ORDERED: MAG355OR11 PO (02:04)
[2017-07-29 06:41] VITALS: BP 133/75
[2017-07-29] MEDS: busPIRone 5 MG TABLET. PO SCH (07:35)
[2017-07-29 07:36] VITALS: BP 133/75
[2017-07-29] MEDS: MEMANTINE 10 MG TABLET. PO SCH (07:36)
[2017-07-29] MEDS: amLODIPine BESYLATE 5 MG TABLET PO SCH (07:36)
[2017-07-29] MEDS: DIVALPROEX 125 MG CAP.SPRINK PO SCH (07:36)
[2017-07-29] MEDS: ACETAMINOPHEN 325 MG TABLET PO SCH (07:37)
[2017-07-29] MEDS: POLYETHYLENE GLYCOL 3350 17 GM PACKET. PO SCH (07:37)
[2017-07-29] MEDS: traZODone 50 MG TABLET. PO SCH (07:38)
[2017-07-29] MEDS: DOCUSATE SODIUM 100 MG CAPSULE PO SCH (07:38)
[2017-07-29] MEDS: ASPIRIN ENTERIC COATED 81 MG TABLET.DR. PO SCH (09:35)
--- NOTE | 2017-07-29 11:21 | PN ---
DATE: 07/25/2017 This late entry 07/25/2017 covers elements not covered in my initial note of 07/25/2017. The patient was staffed at treatment team meeting with the entire team morning of 07/25/2017 seen individually evening of 07/25/2017. Reviewed the patient's history, diagnosis, progress at the treatment team meeting, discharge plans. Overall, the patient continues to be somewhat anxious, repeatedly yelling out, "help me." REVIEW OF SYSTEMS: Ambulation impaired, in wheelchair. No CV, , pulmonary, eye, ENT system symptoms on review. Reliability poor. MENTAL STATUS EXAM: Oriented to herself. Insight, judgment, recent and remote memory, attention, concentration, fund of knowledge poor, consistent with her diagnosis mentioned in my initial note. PLAN: Continue current psychotropics, reviewed drug interactions. Risk/benefit ratio favors no further change. We have just changed the Zoloft to Luvox to be gradually increased to 50 mg a day. May consider increasing Depakote for mood lability, agitation, the yelling repetitiveness persists. MAN Dariel ZULETA MD DR: SCOTT/giuseppe JOB#: [id number] / [id number]
--- NOTE | 2017-07-29 20:14 | DS ---
DATE OF DISCHARGE: 07/29/2017 FINAL DIAGNOSES: AXIS I: 1. Major neurocognitive disorder, Alzheimer's, vascular with depression and delusions and behavioral disturbances. 2. Generalized anxiety disorder. 3. Impulse control disorder, unspecified. REASON FOR ADMISSION: This 77-year-old female was admitted from [facility] at the recommendation of her primary care physician because of increased behavior problems, threatening towards others including the staff, verbally abusive, constantly yelling out, also exhibiting emotional lability, threatening to cut the residents with knife. The patient apparently failed outpatient treatment. Her behavior is considered as dangerous because of her threats and also the patient exhibiting poor impulse control and low frustration tolerance and explosive temper. HOSPITAL COURSE: The patient had a physical exam, routine lab work including CBC, chem profile, and urinalysis. The patient normally with history of cerebrovascular accident with the left hemiplegia, frequent falls and urinary tract infections. The patient is also allergic to penicillin. The patient medication at the time of discharge included Luvox 50 mg at night, Depakote 125 mg t.i.d., BuSpar 5 mg q.i.d., olanzapine 1.25 mg q. 2 hours p.r.n., trazodone 12.5 mg t.i.d. p.o., gabapentin 100 mg at night, melatonin 3 mg at night. The patient was also on aspirin, amlodipine, also on Namenda 10 mg b.i.d., tramadol 50 mg every 6 hours p.r.n. The patient did not have any major side effects to the medications. The patient's behavior improved, but continues to show high level of anxiety, agitation, sometimes difficult to redirect. Her current mental status at the time of discharge was she is somewhat oriented to surroundings, significant cognitive deficits both short-term and long-term. The patient is also not able to process information exhibiting poor impulse control or low frustration tolerance. The patient is not showing much insight to her problems. Judgment impaired. AFTERCARE PLAN: The patient was discharged to return to [facility]. She will continue on the medications listed above. The patient was medically stable. CONNOR CEDILLO MD DR: KATLYN/giuseppe JOB#: [id number] / [id number]
== END 2017-07-29 14:00 | disposition home or self-care (01) | DRG 884 ==
LOC: ER 19:16 → GEROPSY 22:25
PROVIDERS: ADMIT Psychiatry & Neurology Psychiatry; ATTEND Psychiatry & Neurology Psychiatry
DX: F01.51 Vascular dementia, unspecified severity, with behavioral disturbance (principal); G30.9 Alzheimer's disease, unspecified; I69.354 Hemiplegia and hemiparesis following cerebral infarction affecting left non-dominant side; F02.81 Dementia in other diseases classified elsewhere, unspecified severity, with behavioral disturbance; D75.89 Other specified diseases of blood and blood-forming organs; F22 Delusional disorders; F32.9 Major depressive disorder, single episode, unspecified; F63.9 Impulse disorder, unspecified; I10 Essential (primary) hypertension; Z66 Do not resuscitate; Z88.0 Allergy status to penicillin; F29 Unspecified psychosis not due to a substance or known physiological condition; R29.6 Repeated falls; F41.1 Generalized anxiety disorder
CPT/HCPCS: 36415; 80053; 80061; 80164; 81001; 82306; 82607; 83036; 83540; 83550; 83735; 84436; 84443; 84480; 85025; 86592; 86593; 87086; 93005; 97110; 97116; 97530; 97535; 99285-25